=== PATIENT | female | born 1960 | race Caucasian/White ===

== ENCOUNTER 2018-08-28 14:58 | Emergency (ER) | payer OTHER ==
[2018-08-28] MEDS ORDERED: NA CHLORIDE 0.9% 1,000 ML ONE (17:15)
[2018-08-28 17:22] LABS: Absolute Lymphocytes (CBC) 1.8 K/uL (0.7-4.9); Absolute Monocytes 0.6 K/uL (0.1-1.3); Absolute Neutrophil 3.5 K/uL (1.8-8.0); Basophils % 0.2 % (0-1.3); Hematocrit 32.6 % (36.0-45.0); Lymphocytes % 29.2 % (15.3-44.8); MPV 7.4 fL (7.6-11.3); Monocytes % 10.1 % (3.3-12.3); Protime INR 1.04; RBC Red Blood Cell Count 3.81 M/uL (3.86-4.86)
[2018-08-28 17:41] LABS: ALT/SGPT 39 U/L (12-78); AST/SGOT 28 U/L (15-37); Albumin 3.5 g/dL (3.4-5.0); Alkaline Phosphatase 55 U/L (45-117); BUN Blood Urea Nitrogen 14 mg/dL (7-18); Bicarbonate 28 mmol/L (21-32); Bilirubin Direct 0.1 mg/dL (0-0.2); Bilirubin Total 0.4 mg/dL (0.2-1.0); Glucose Level 106 mg/dL (74-106); Magnesium 2.1 mg/dL (1.8-2.4); NT PRO-BNP 239 pg/mL (<125); Potassium 3.8 mmol/L (3.5-5.1); Protein, Total 6.7 g/dL (6.4-8.2); Sodium Level 141 mmol/L (136-145); Troponin (Emerg Dept Use Only) < 0.02 ng/mL (0.0-0.045)
--- NOTE | 2018-08-28 18:01 | RAD REPORT ---
EXAM DESCRIPTION: Shireen De La Vega (2 Views)08/28/2018 5:13 pm CLINICAL HISTORY: Cough COMPARISON: 2017 FINDINGS: The lungs appear clear of acute infiltrate. The heart is normal size IMPRESSION: No acute abnormalities displayed
--- NOTE | 2018-08-28 19:56 | EDPHYS ---
Physician Documentation [facility] Name: Debbie Emanuel Age: 57 yrs Sex: Female : 1960 Arrival Date: 08/28/2018 Time: 15:01 Bed 27 Private MD: Anat Sam K ED Physician Demetrio Gates HPI: 08/28 16:29 This 57 yrs old Female presents to ER via Ambulatory with complaints of Blood pm1 Pressure Problem. 16:29 . Lower than normal blood pressure today. Systolic blood pressure in the AM was in the pm1 90s. Since the patient has been ill with URI she has not been drinking as much water as she normally takes. Typically 10 bottles per day. Since illness she has been drinking about 2-3. Had cough and congestion onset 3 weeks ago. Saw PCP and was given medrol dose paola. Tolerated only 3 days of it and stopped. Was later called in a prescription of amoxicillin by PCP and she completed them about 1 week ago. 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 16:29 cough is improved and no longer productive. pm1 Historical: - Allergies: 15:11 Codeine; tw2 15:11 Vicodin; tw2 - Home Meds: 15:11 levothyroxine 75 mcg tab 1 tab once daily [Active]; metoprolol tartrate 25 mg Oral tab tw2 1 tab once daily [Active]; lisinopril 20 mg Oral tab 1 tab once daily [Active]; Paxil 40 mg Oral tab 1 tab once daily [Active]; hydrochlorothiazide 12.5 mg Oral tab 1 tab once daily [Active]; fenofibrate 120 mg oral tab 1 tab once daily [Active]; Lipitor 10 mg Oral tab 1 tab once daily [Active]; Ecotrin 325 mg Oral TbEC 1 tab once daily [Active]; - PMHx: 15:11 vitamin b-12 deficiency; Thyroid problem; Hypertension; Hyperlipidemia; Anxiety; tw2 - PSHx: 15:11 Tubal ligation; Appendectomy; Hysterectomy; tw2 - Immunization history:: Adult Immunizations. - Social history:: Smoking status: . - Ebola Screening: : Patient denies travel to an Ebola-affected area in the 21 days before illness onset. ROS: 16:29 Constitutional: Negative for fever, chills, and weight loss, Eyes: Negative for injury, pm1 pain, redness, and discharge, ENT: Negative for injury, pain, and discharge, Neck: Negative for injury, pain, and swelling, Cardiovascular: Negative for chest pain, palpitations, and edema. 16:29 Abdomen/GI: Negative for abdominal pain, nausea, vomiting, diarrhea, and constipation, Back: Negative for injury and pain, : Negative for injury, bleeding, discharge, and swelling, MS/Extremity: Negative for injury and deformity, Skin: Negative for injury, rash, and discoloration, Neuro: Negative for headache, weakness, numbness, tingling, and seizure. 16:29 Respiratory: Positive for cough, Negative for shortness of breath, sputum production, wheezing. Exam: 16:29 Constitutional: This is a well developed, well nourished patient who is awake, alert, pm1 and in no acute distress. Head/Face: Normocephalic, atraumatic. Eyes: Pupils equal round and reactive to light, extra-ocular motions intact. Lids and lashes normal. Conjunctiva and sclera are non-icteric and not injected. Cornea within normal limits. Periorbital areas with no swelling, redness, or edema. ENT: Nares patent. No nasal discharge, no septal abnormalities noted. Tympanic membranes are normal and external auditory canals are clear. Oropharynx with no redness, swelling, or masses, exudates, or evidence of obstruction, uvula midline. Mucous membranes moist. Neck: Trachea midline, no thyromegaly or masses palpated, and no cervical lymphadenopathy. Supple, full range of motion without nuchal rigidity, or vertebral point tenderness. No Meningismus. Chest/axilla: Normal chest wall appearance and motion. Nontender with no deformity. No lesions are appreciated. Respiratory: Lungs have equal breath sounds bilaterally, clear to auscultation and percussion. No rales, rhonchi or wheezes noted. No increased work of breathing, no retractions or nasal flaring. Abdomen/GI: Soft, non-tender, with normal bowel sounds. No distension or tympany. No guarding or rebound. No evidence of tenderness throughout. 16:29 Back: No spinal tenderness. No costovertebral tenderness. Full range of motion. Skin: Warm, dry with normal turgor. Normal color with no rashes, no lesions, and no evidence of cellulitis. MS/ Extremity: Pulses equal, no cyanosis. Neurovascular intact. Full, normal range of motion. 16:29 Cardiovascular: Rate: bradycardic, Rhythm: regular, Heart sounds: normal, Edema: is not appreciated. 16:29 Neuro: Orientation: is normal, Motor: is normal, moves all fours. Vital Signs: 15:08 BP 107 / 62; Pulse 62; Resp 17; Temp 97.1(TE); Pulse Ox 97% on R/A; Weight 65.77 kg tw2 (R); Height 5 ft. 6 in. (167.64 cm); Pain 9/10; 17:13 BP 117 / 59; Pulse 51; Resp 18; Pulse Ox 99% ; tf1 18:00 BP 132 / 69; Pulse 51; Resp 18; Temp 98.6; Pulse Ox 99% ; tf1 18:30 BP 150 / 75; Pulse 50; Resp 15; Pulse Ox 98% ; rv 19:00 BP 145 / 71; Pulse 52; Resp 15; Pulse Ox 99% ; rv 20:00 BP 145 / 66; Pulse 55; Resp 16; Temp 98.5; Pulse Ox 99% ; rv 15:08 Body Mass Index 23.40 (65.77 kg, 167.64 cm) tw2 MDM: 16:26 Patient medically screened. pm1 19:54 Data reviewed: vital signs. Data interpreted: Pulse oximetry: on room air is 99 %. pm1 Interpretation: normal. Counseling: I had a detailed discussion with the patient and/or guardian regarding: the historical points, exam findings, and any diagnostic results supporting the discharge/admit diagnosis, lab results, radiology results, the need for outpatient follow up, to return to the emergency department if symptoms worsen or persist or if there are any questions or concerns that arise at home. 08/28 16:42 Order name: Flu pm1 08/28 16:42 Order name: Basic Metabolic Panel pm1 08/28 16:42 Order name: CBC with Diff; Complete Time: 17:31 pm1 08/28 16:42 Order name: LFT's; Complete Time: 18:06 pm1 08/28 16:42 Order name: Magnesium; Complete Time: 18:06 pm1 08/28 16:42 Order name: NT PRO-BNP; Complete Time: 18:06 pm08/28 16:42 Order name: Chest Pa And Lat (2 Views) XRAY; Complete Time: 18:06 pm1 08/28 16:42 Order name: PT-INR; Complete Time: 17:31 pm1 08/28 16:42 Order name: Troponin (emerg Dept Use Only); Complete Time: 18:06 pm1 08/28 16:42 Order name: EKG; Complete Time: 16:44 pm1 08/28 16:43 Order name: Influenza Screen (A ; Complete Time: 18:06 EDMS 08/28 16:43 Order name: Basic Metabolic Panel; Complete Time: 18:06 EDMS 08/28 19:55 Order name: [place] Screen Profile ss 08/28 16:42 Order name: Cardiac monitoring; Complete Time: 17:07 pm1 08/28 16:42 Order name: EKG - Nurse/Tech; Complete Time: 17:07 pm1 08/28 16:42 Order name: IV Saline Lock; Complete Time: 17:07 pm1 08/28 16:42 Order name: Labs collected and sent; Complete Time: 17:07 pm1 08/28 16:42 Order name: O2 Per Protocol; Complete Time: 17:07 pm1 08/28 16:42 Order name: O2 Sat Monitoring; Complete Time: 17:07 pm1 EC:06 Rate is 49 beats/min. Rhythm is regular, Sinus bradycardia with Right bundle branch pm1 block. QRS Urich is Normal. Clinical impression: Abnormal EKG without significant change. Administered Medications: 17:20 Drug: NS 0.9% 1000 ml Route: IV; Rate: 1000 ml; Site: right antecubital; rv 19:19 Follow up: IV Status: Completed infusion; IV Intake: 1000ml rv Disposition: 08/29 09:06 Co-signature as Attending Physician, Demetrio Gates MD I agree with the assessment and kdr plan of care. Disposition: 08/28/18 19:55 Discharged to Home. Impression: Dehydration, Hypotension, Acute upper respiratory infection, unspecified. - Condition is Stable. - Discharge Instructions: Dehydration, Adult, Viral Respiratory Infection, Rehydration, Adult. - Medication Reconciliation Form, Thank You Letter, Antibiotic Education, Prescription Opioid Use form. - Follow up: Emergency Department; When: As needed; Reason: Worsening of condition. Follow up: Private Physician; When: 2 - 3 days; Reason: Recheck today's complaints, Continuance of care, Re-evaluation by your physician. - Problem is new. - Symptoms have improved. Signatures: Dispatcher [employer] EDMS Demetrio Gates MD MD kdr Marinas, Patrick, NP CONTACT CENTER ASSISTANT pm1 Crystal Gross, RN RN tw2 Yazan Toledo RN RN rv Corrections: (The following items were deleted from the chart) 08/28 20:24 19:55 08/28/2018 19:55 Discharged to Home. Impression: Dehydration; Hypotension; Acute rv upper respiratory infection, unspecified. Condition is Stable. Forms are Medication Reconciliation Form, Thank You Letter, Antibiotic Education, Prescription Opioid Use. Follow up: Emergency Department; When: As needed; Reason: Worsening of condition. Follow up: Private Physician; When: 2 - 3 days; Reason: Recheck today's complaints, Continuance of care, Re-evaluation by your physician. Problem is new. Symptoms have improved. pm1
--- NOTE | 2018-08-28 19:56 | ER ---
Nurse's Notes [facility] Name: Debbie Emanuel Age: 57 yrs Sex: Female : 1960 Arrival Date: 08/28/2018 Time: 15:01 Bed 27 Private MD: Anat Sam K Diagnosis: Dehydration;Hypotension;Acute upper respiratory infection, unspecified Presentation: 08/28 15:06 Presenting complaint: Patient states: i have been sick for 2 weeks, the just called tw2 me in some antibiotics, i hurt all over, i still have a cough but it has gotten better, i am weak i dont have any energy. Transition of care: patient was not received from another setting of care. Onset of symptoms was August 28, 2018. Risk Assessment: Do you want to hurt yourself or someone else? Patient reports no desire to harm self or others. Initial Sepsis Screen: Does the patient meet any 2 criteria? No. Patient's initial sepsis screen is negative. Does the patient have a suspected source of infection? No. Patient's initial sepsis screen is negative. Note i completed it about 3 or 4 days ago,amoxicillin course that Dr. Sam called in. Care prior to arrival: None. 15:06 Method Of Arrival: Ambulatory tw2 15:06 Acuity: NU 3 tw2 Triage Assessment: 15:08 General: Appears in no apparent distress. slender, well groomed, Behavior is calm, tw2 cooperative, appropriate for age. Pain: Complains of pain in "all over". Neuro: Reports weakness since 2 weeks now. Respiratory: Reports cough that is. Historical: - Allergies: 15:11 Codeine; tw2 15:11 Vicodin; tw2 - Home Meds: 15:11 levothyroxine 75 mcg tab 1 tab once daily [Active]; metoprolol tartrate 25 mg Oral tab tw2 1 tab once daily [Active]; lisinopril 20 mg Oral tab 1 tab once daily [Active]; Paxil 40 mg Oral tab 1 tab once daily [Active]; hydrochlorothiazide 12.5 mg Oral tab 1 tab once daily [Active]; fenofibrate 120 mg oral tab 1 tab once daily [Active]; Lipitor 10 mg Oral tab 1 tab once daily [Active]; Ecotrin 325 mg Oral TbEC 1 tab once daily [Active]; - PMHx: 15:11 vitamin b-12 deficiency; Thyroid problem; Hypertension; Hyperlipidemia; Anxiety; tw2 - PSHx: 15:11 Tubal ligation; Appendectomy; Hysterectomy; tw2 - Immunization history:: Adult Immunizations. - Social history:: Smoking status: . - Ebola Screening: : Patient denies travel to an Ebola-affected area in the 21 days before illness onset. Screenin:34 Abuse screen: Denies threats or abuse. Denies injuries from another. Nutritional rv screening: No deficits noted. Tuberculosis screening: No symptoms or risk factors identified. Fall Risk None identified. Assessment: 17:28 General: Appears in no apparent distress. uncomfortable, Behavior is calm, cooperative. rv Pain: Denies pain. Neuro: Level of Consciousness is awake, alert, obeys commands, Oriented to person, place, time, situation. Cardiovascular: Capillary refill < 3 seconds. Respiratory: Airway is patent. GI: No signs and/or symptoms were reported involving the gastrointestinal system. : No signs and/or symptoms were reported regarding the genitourinary system. EENT: No signs and/or symptoms were reported regarding the EENT system. Derm: Skin is intact. Musculoskeletal: No signs and/or symptoms reported regarding the musculoskeletal system. 19:18 Reassessment: Patient appears in no apparent distress at this time. Patient and/or rv family updated on plan of care and expected duration. Pain level reassessed. Patient is alert, oriented x 3, equal unlabored respirations, skin warm/dry/pink. Vital Signs: 15:08 BP 107 / 62; Pulse 62; Resp 17; Temp 97.1(TE); Pulse Ox 97% on R/A; Weight 65.77 kg tw2 (R); Height 5 ft. 6 in. (167.64 cm); Pain 9/10; 17:13 BP 117 / 59; Pulse 51; Resp 18; Pulse Ox 99% ; tf1 18:00 BP 132 / 69; Pulse 51; Resp 18; Temp 98.6; Pulse Ox 99% ; tf1 18:30 BP 150 / 75; Pulse 50; Resp 15; Pulse Ox 98% ; rv 19:00 BP 145 / 71; Pulse 52; Resp 15; Pulse Ox 99% ; rv 20:00 BP 145 / 66; Pulse 55; Resp 16; Temp 98.5; Pulse Ox 99% ; rv 15:08 Body Mass Index 23.40 (65.77 kg, 167.64 cm) tw2 ED Course: 15:01 Patient arrived in ED. mr 15:02 Anat Sam MD is Private Physician. mr 15:08 Triage completed. tw2 15:08 Arm band placed on. tw2 15:30 Patient has correct armband on for positive identification. Placed in gown. Bed in low rv position. Call light in reach. Side rails up X 1. 15:30 Pulse ox on. NIBP on. rv 16:26 Seth Martin NP is PHCP. pm1 16:26 Demetrio Gates MD is Attending Physician. pm1 17:00 Yazan Toledo RN is Primary Nurse. rv 17:01 Initial lab(s) drawn, by pr, sent to lab. Flu and/or RSV swab sent to lab. Inserted dh3 saline lock: 20 gauge in right antecubital area, using aseptic technique. Blood collected. 17:08 EKG done, by quality lab technician. reviewed by Seth Martin NP. 3 17:10 Chest Pa And Lat (2 Views) XRAY In Process Unspecified. EDMS 17:20 Flu Sent. rv 17:20 Basic Metabolic Panel Sent. rv 20:23 No provider procedures requiring assistance completed. IV discontinued, intact, rv bleeding controlled, No redness/swelling at site. Pressure dressing applied. Administered Medications: 17:20 Drug: NS 0.9% 1000 ml Route: IV; Rate: 1000 ml; Site: right antecubital; rv 19:19 Follow up: IV Status: Completed infusion; IV Intake: 1000ml rv Intake: 19:19 IV: 1000ml; Total: 1000ml. rv Outcome: 19:55 Discharge ordered by MD. pm1 20:23 Discharged to home ambulatory. rv 20:23 Condition: good 20:23 Discharge instructions given to patient, family, Instructed on discharge instructions, follow up and referral plans. Demonstrated understanding of instructions, follow-up care. 20:24 Patient left the ED. rv Signatures: Dispatcher [employer] EDMS Jeannie Veliz Seth Martin NP LIFTER/DRIVER pm1 Crystal Gross RN RN tw2 Laurel Coronel [facility] Veena Vergara [facility] Yazan Toledo RN RN rv Zay Mckeon RN RN tf1 Corrections: (The following items were deleted from the chart) 18:44 18:00 BP 132 / 69; Pulse 51bpm; Resp 18bpm; Pulse Ox 99%; tf1 tf1
--- NOTE | 2018-08-29 07:26 | EKG ---
Test Date: 2018-08-28 Test Time: 17:04:21 Proof Sorter: LINDSEY MEASUREMENT RESULTS: Intervals: Rate: 49 MO: 172 QRSD: 108 QT: 462 QTc: 417 Marcell: P: 58 MO: 172 QRS: -19 T: 17 INTERPRETIVE STATEMENTS: Marked sinus bradycardia Incomplete right bundle branch block Anterior infarct, age undetermined Abnormal ECG Compared to ECG 01/28/2017 17:54:02 Sinus rhythm no longer present Myocardial infarct finding still present Electronically Signed On 08-29-18 07:25:38 CDT by Trevor Herbert
== END 2018-08-28 20:24 | disposition home or self-care (01) ==
LOC: ER 14:58
DX: E86.0 Dehydration (principal); J06.9 Acute upper respiratory infection, unspecified; I10 Essential (primary) hypertension; E78.5 Hyperlipidemia, unspecified; F41.9 Anxiety disorder, unspecified; E07.9 Disorder of thyroid, unspecified; Z88.5 Allergy status to narcotic agent
CPT/HCPCS: 36415; 71046; 80048; 80076; 83735; 83880; 84484; 85025; 85610; 86308; 87804; 93005; 96360; 96361; 99284; J7030

== ENCOUNTER 2020-04-10 10:03 | Emergency (ER) | payer OTHER ==
--- OUTSIDE RECORDS SUMMARY | 2020-04-10 10:05 | XMS REPORT | Continuity of Care Document ---
:1960 Author Organization [facility] t Address [address] [place] [address] [address] [place] [address] Care Team Providers Name Role Phone Cristobal Henderson MD Attending Clinician Only, Test Attending Clinician Unavailable Doctor Unassigned, Name Attending Clinician Unavailable Cristobal Henderson MD Admitting Clinician Problems Condition Condition Condition Status Onset Resolution Last Treating Co mments Source Name Details Category Date Date Treatment Clinician Date Impingemen Impingemen Problem Active [facility] t syndrome t syndrome Danita kes - of right of right Memori a shoulder shoulder l [facility] ent Clinics Bone cyst Bone cyst Problem Active [facility] of humerus of humerus Danita kes - Memoria [facility] ent Clinics Pain, Pain, Diagnosis Active [facility] joint, [facility], shoulder, [place] right right l [facility] ent [facility] Adhesive Adhesive Diagnosis Active [facility] capsulitis capsulitis Danita kes - of right of right Memori a shoulder shoulder l [facility] ent Clinics Allergies, Adverse Reactions, Alerts Allergy Allergy Status Severity Reaction(s) Onset Inactive Treating Comm ents Source Name Type Date Date Clinician Steroids Adverse Active Info Not [facility] Vicodin Adverse Active Info Not [facility] Reaction Available [facility] ent [facility] Hydrocod Adverse Active Info Not [facility] one-Acet Reaction Available [facility] Medications Ordered Filled Start Stop Current Ordering Indication Dosage Frequency Signature Comments Components Source Medication Medication Date Date Medication? Clinician (SIG) Name Name Fenofibric Fenofibric Yes Bhanu not [facility] Acid Acid [facility] defined [facility] Trazodone Trazodone Yes Bhanu not [facility] HCl HCl [facility]ala [facility] Levothyroxi Levothyroxi Yes Bhanu not [facility] ne Sodium ne Sodium Zavala defined [facility] Paroxetine Paroxetine Yes Bhanu not [facility] HCl HCl [facility]ala defined [facility] Atorvastati Atorvastati Yes Bhanu not [facility] n Calcium n Calcium Zavala defined [facility] Metoprolol Metoprolol Yes Bhanu not [facility] Succinate Succinate Zavala defined [facility] Lisinopril Lisinopril Yes Bhanu not [facility] Zavala [facility] Hydrochloro Hydrochloro Yes Bhanu not [facility] thiazide thiazide Zavala defined Danita kes - [facility] Procedures This patient has no known procedures. Encounters Start End Encounter Admission Attending Care Care Encounter Source Date/Time Date/Time Type Type Clinicians Facility Department ID 2019-12-30 2019-12-30 [facility] [id number] 06:40:00 09:04:00 Encounter Sarita kumar [id number] [place] [id number] [facility] [id number] [place] 071 2019-12-29 2019-12-29 Laboratory Only, [facility] [id number] 08:59:05 09:14:05 Only Test Ivania [id number] [place] [id number] [place] [id number] 2019-12-29 2019-12-29 Orders Doctor NORIEGA [id number] 00:00:00 00:00:00 Only UnassignedPIETRO [id number] Gervais [facility] [id number] 2018-12-23 2018-12-23 [place] [id number] 09:30:00 09:30:00 t Bone [facility] Results This patient has no known results.
--- NOTE | 2020-04-10 10:17 | EDPHYS ---
Physician Documentation [facility] Name: Debbie Emanuel Age: 59 yrs Sex: Female : 1960 Arrival Date: 04/10/2020 Time: 10:04 Bed 19 Private MD: Constantin Betancourt HPI: 04/10 10:14 This 59 yrs old Female presents to ER via Unassigned with complaints of kb Poison Francine. 10:14 The patient's rash thought to be caused by Contact allergy. The rash is located on the kb body diffusely. The rash can be described as papular. Onset: The symptoms/episode began/occurred 1 week(s) ago. Associated signs and symptoms: Pertinent positives: itching. Severity of symptoms: At their worst the symptoms were moderate in the emergency department the symptoms are unchanged. Treatment given at home: Benadryl. The patient has experienced similar episodes in the past. The patient has not recently seen a physician. Pt reports she cleaned out a ditch last Saturday and developed a small rash on her left wrist afterwards. States the rash has spread over the week. States she has had this a few times and was given a shot here so that is what she needs. Historical: - Allergies: 10:27 Vicodin; ll1 10:27 Codeine; ll1 - PMHx: 10:27 Anxiety; Thyroid problem; Hypertension; Hyperlipidemia; vitamin b-12 deficiency; ll1 - PSHx: 10:27 Tubal ligation; Appendectomy; Hysterectomy; ll1 - Immunization history:: Flu vaccine is up to date. - Social history:: Smoking status: Patient denies any tobacco usage or history of. ROS: 10:14 Constitutional: Negative for fever, chills, and weight loss, Cardiovascular: Negative kb for chest pain, palpitations, and edema, Respiratory: Negative for shortness of breath, cough, wheezing, and pleuritic chest pain, Abdomen/GI: Negative for abdominal pain, nausea, vomiting, diarrhea, and constipation, MS/Extremity: Negative for injury and deformity, Neuro: Negative for headache, weakness, numbness, tingling, and seizure. 10:14 Skin: Positive for rash, diffusely. Exam: 10:13 Constitutional: This is a well developed, well nourished patient who is awake, alert, kb and in no acute distress. Chest/axilla: Normal chest wall appearance and motion. Nontender with no deformity. No lesions are appreciated. Cardiovascular: Regular rate and rhythm with a normal S1 and S2. No gallops, murmurs, or rubs. Normal PMI, no JVD. No pulse deficits. Respiratory: Lungs have equal breath sounds bilaterally, clear to auscultation and percussion. No rales, rhonchi or wheezes noted. No increased work of breathing, no retractions or nasal flaring. Abdomen/GI: Soft, non-tender, with normal bowel sounds. No distension or tympany. No guarding or rebound. No evidence of tenderness throughout. MS/ Extremity: Pulses equal, no cyanosis. Neurovascular intact. Full, normal range of motion. Neuro: Awake and alert, GCS 15, oriented to person, place, time, and situation. Cranial nerves II-XII grossly intact. Motor strength 5/5 in all extremities. Sensory grossly intact. Cerebellar exam normal. Normal gait. 10:13 Skin: rash a moderate rash is noted, consistent with contact dermatitis. Vital Signs: 10:25 BP 134 / 69; Pulse 73; Resp 16; Temp 97.3; Pulse Ox 98% on R/A; Weight 64.41 kg; Height ll1 5 ft. 6 in. (167.64 cm); Pain 0/10; 10:25 Body Mass Index 22.92 (64.41 kg, 167.64 cm) ll1 MDM: 10:06 Patient medically screened. kb 10:13 Data reviewed: vital signs, nurses notes. Data interpreted: Pulse oximetry: on room air kb is 100 %. Interpretation: normal. Counseling: I had a detailed discussion with the patient and/or guardian regarding: the historical points, exam findings, and any diagnostic results supporting the discharge/admit diagnosis, the need for outpatient follow up, a family practitioner, to return to the emergency department if symptoms worsen or persist or if there are any questions or concerns that arise at home. Administered Medications: 10:25 Drug: Decadron 10 mg Route: IM; Site: right gluteus; ll1 10:50 Follow up: Response: No adverse reaction; RASS: Alert and Calm (0) ll1 Disposition: 04/11 08:34 Co-signature as Attending Physician, Constantin Guerrero MD I agree with the assessment and pravin plan of care. Disposition: 04/10/20 10:16 Discharged to Home. Impression: Allergic contact dermatitis due to plants, except food. - Condition is Stable. - Discharge Instructions: Poison Francine Dermatitis, [id number], Contact Dermatitis, [id number]. - Prescriptions for Pepcid 20 mg Oral Tablet - take 1 tablet by ORAL route every 12 hours for 5 days; 10 tablet. Prednisone 20 mg Oral Tablet - take 1 tablet by ORAL route once daily for 5 days; 5 tablet. - Medication Reconciliation Form, Thank You Letter, Antibiotic Education, Prescription Opioid Use form. - Follow up: Emergency Department; When: As needed; Reason: Worsening of condition. Follow up: Private Physician; When: 2 - 3 days; Reason: Recheck today's complaints, Continuance of care, Re-evaluation by your physician. Signatures: Jennifer Vargas, CUSTOMER STRATEGY MANAGER-C CUSTOMER STRATEGY MANAGER-Ckb Constantin Guerrero MD MD cha Lewis, Lynsay RN RN ll1 Corrections: (The following items were deleted from the chart) 04/10 10:50 10:16 04/10/2020 10:16 Discharged to Home. Impression: Allergic contact dermatitis due ll1 to plants, except food. Condition is Stable. Forms are Medication Reconciliation Form, Thank You Letter, Antibiotic Education, Prescription Opioid Use. Follow up: Emergency Department; When: As needed; Reason: Worsening of condition. Follow up: Private Physician; When: 2 - 3 days; Reason: Recheck today's complaints, Continuance of care, Re-evaluation by your physician. kb
--- NOTE | 2020-04-10 10:17 | ER ---
Nurse's Notes [facility] Name: Debbie Emanuel Age: 59 yrs Sex: Female : 1960 Arrival Date: 04/10/2020 Time: 10:04 Bed 19 Private MD: Diagnosis: Allergic contact dermatitis due to plants, except food Presentation: 04/10 10:25 Chief complaint: Patient states: Rash with itching to body for 1 week. Coronavirus ll1 screen: Client denies travel out of the [place] in the last 14 days. At this time, the client does not indicate any symptoms associated with coronavirus-19. Ebola Screen: Patient denies travel to an Ebola-affected area in the 21 days before illness onset. Initial Sepsis Screen: Does the patient meet any 2 criteria? No. Patient's initial sepsis screen is negative. Does the patient have a suspected source of infection? Yes: Skin breakdown/wound. Risk Assessment: Do you want to hurt yourself or someone else? Patient reports no desire to harm self or others. Onset of symptoms was April 03, 2020. 10:25 Method Of Arrival: Ambulatory ll1 10:25 Acuity: NU 4 ll1 Triage Assessment: 10:50 General: Appears uncomfortable, Behavior is calm, cooperative, appropriate for age. ll1 Historical: - Allergies: 10:27 Vicodin; ll1 10:27 Codeine; ll1 - PMHx: 10:27 Anxiety; Thyroid problem; Hypertension; Hyperlipidemia; vitamin b-12 deficiency; ll1 - PSHx: 10:27 Tubal ligation; Appendectomy; Hysterectomy; ll1 - Immunization history:: Flu vaccine is up to date. - Social history:: Smoking status: Patient denies any tobacco usage or history of. Screenin:50 Abuse screen: Denies threats or abuse. Nutritional screening: No deficits noted. ll1 Tuberculosis screening: No symptoms or risk factors identified. Fall Risk Total Umanzor Fall Scale indicates No Risk (0-24 pts). Assessment: 10:25 General: Appears uncomfortable, Behavior is calm, cooperative, appropriate for age. ll1 Pain: Denies pain. Neuro: No deficits noted. Cardiovascular: No deficits noted. Respiratory: No deficits noted. Derm: Rash noted that is itchy, red, raised, Reports rash with itching all over body for 1 week. Possible poison jesusita exposure. Vital Signs: 10:25 BP 134 / 69; Pulse 73; Resp 16; Temp 97.3; Pulse Ox 98% on R/A; Weight 64.41 kg; Height ll1 5 ft. 6 in. (167.64 cm); Pain 0/10; 10:25 Body Mass Index 22.92 (64.41 kg, 167.64 cm) ll1 ED Course: 10:04 Patient arrived in ED. rg4 10:05 Jennifer Vargas FNP-C is [facility]. kb 10:05 Constantin Guerrero MD is Attending Physician. kb 10:11 Ervin Rachel, LEXI is Primary Nurse. ll1 10:11 Arm band placed on Patient placed in an exam room, on a stretcher. ll1 10:27 Triage completed. ll1 10:50 Patient has correct armband on for positive identification. Bed in low position. Call ll1 light in reach. Side rails up X 1. Cardiac monitoring not applicable on this patient. 10:50 No provider procedures requiring assistance completed. Patient did not have IV access ll1 during this emergency room visit. Administered Medications: 10:25 Drug: Decadron 10 mg Route: IM; Site: right gluteus; ll1 10:50 Follow up: Response: No adverse reaction; RASS: Alert and Calm (0) ll1 Outcome: 10:16 Discharge ordered by . kb 10:50 Patient left the ED. ll1 10:50 Discharged to home ambulatory. ll1 10:50 Condition: stable 10:50 Discharge instructions given to patient, Instructed on discharge instructions, follow up and referral plans. no drinking with medication, no driving heavy equipment, medication usage, Demonstrated understanding of instructions, follow-up care, medications, Prescriptions given X 4. Signatures: Jennifer Vargas FNP-C FNP-Ckb Garcia, Rubi rg4 Ervin Rachel, RN RN ll1
[2020-04-10] MEDS ORDERED: dexAMETHasone 10 MG/ML VIAL ONE (10:32)
[2020-04-10 10:55] VITALS: BP 134/69; TEMP 97.3; O2SAT 98
== END 2020-04-10 10:50 | disposition home or self-care (01) ==
LOC: ER 10:03
DX: L23.7 Allergic contact dermatitis due to plants, except food (principal); I10 Essential (primary) hypertension; Z88.5 Allergy status to narcotic agent
CPT/HCPCS: 96372; 99283; J1100

== ENCOUNTER 2021-02-04 15:22 | Observation (INO) | payer OTHER ==
[2021-02-04 15:59] LABS: Absolute Lymphocytes (CBC) 2.3 K/uL (0.7-4.9); Basophils % 0.4 % (0-1.3); Hematocrit 36.5 % (36.0-45.0); Lymphocytes % 32.1 % (15.3-44.8); MPV 7.3 fL (7.6-11.3)
[2021-02-04 16:08] LABS: Protime INR 1.03
[2021-02-04 16:14] LABS: ALT/SGPT 41 U/L (12-78); AST/SGOT 30 U/L (15-37); Albumin 4.1 g/dL (3.4-5.0); Alkaline Phosphatase 78 U/L (45-117); BUN Blood Urea Nitrogen 21 mg/dL (7-18); Bicarbonate 27 mmol/L (21-32); Bilirubin Direct 0.1 mg/dL (0-0.2); Bilirubin Total 0.3 mg/dL (0.2-1.0); Glucose Level 118 mg/dL (74-106); Magnesium 2.1 mg/dL (1.8-2.4); NT PRO-BNP 48 pg/mL (<125); Potassium 3.4 mmol/L (3.5-5.1); Sodium Level 140 mmol/L (136-145); Troponin (Emerg Dept Use Only) < 0.02 ng/mL (0.0-0.045)
--- NOTE | 2021-02-04 16:17 | RAD REPORT ---
EXAM DESCRIPTION: Shireen Single View02/04/2021 4:11 pm CLINICAL HISTORY: Chest pain COMPARISON: 2018 FINDINGS: The lungs appear clear of acute infiltrate. The heart is normal size IMPRESSION: No acute abnormalities displayed
--- NOTE | 2021-02-04 16:26 | ER ---
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 Pt states "my doctor took me off metoprolol about 3 weeks ago because my heart rate was low but I was on that medication for years". Pt also reports dizziness, denies nausea/vomiting. 15:26 Coronavirus screen: shortness of breath. Ebola Screen: No symptoms or risks identified aa5 at this time. Initial Sepsis Screen: Does the patient meet any 2 criteria? No. Patient's initial sepsis screen is negative. Does the patient have a suspected source of infection? No. Patient's initial sepsis screen is negative. Risk Assessment: Do you want to hurt yourself or someone else? Patient reports no desire to harm self or others. Onset of symptoms was February 04, 2021. 15:26 Acuity: NU 3 aa5 15:26 Method Of Arrival: Wheelchair aa5 Triage Assessment: 15:30 General: Appears distressed, uncomfortable, obese, Behavior is cooperative, appropriate bp for age, anxious. Pain: Complains of pain in chest. EENT: No deficits noted. Neuro: Reports dizziness. Cardiovascular: Reports chest pain. Respiratory: Reports shortness of breath. GI: No signs and/or symptoms were reported involving the gastrointestinal system. : No signs and/or symptoms were reported regarding the genitourinary system. Derm: No deficits noted. Musculoskeletal: No deficits noted. Historical: - Allergies: 15:31 Codeine; aa5 15:31 Vicodin; aa5 - Home Meds: 19:41 Ecotrin 325 mg Oral TbEC 1 tab once daily [Active]; fenofibrate 120 mg Oral tab 1 tab lp1 once daily [Active]; hydrochlorothiazide 12.5 mg Oral tab 1 tab once daily [Active]; levothyroxine 75 mcg tab 1 tab once daily [Active]; Lipitor 10 mg Oral tab 1 tab once daily [Active]; lisinopril 20 mg Oral tab 1 tab once daily [Active]; metoprolol tartrate 25 mg Oral tab 1 tab once daily [Active]; Paxil 40 mg Oral tab 1 tab once daily [Active]; - PMHx: 15:31 Anxiety; Hyperlipidemia; Hypertension; Thyroid problem; vitamin b-12 deficiency; aa5 - Immunization history:: Client reports receiving the Rogelio \\T\\ Rogelio single-dose vaccine. - Social history:: Smoking status: Patient denies any tobacco usage or history of. Screenin:30 Abuse screen: Denies threats or abuse. Nutritional screening: No deficits noted. ap3 Tuberculosis screening: No symptoms or risk factors identified. Fall Risk None identified. Assessment: 15:30 General: Appears in no apparent distress. uncomfortable, Behavior is calm, cooperative, ap3 appropriate for age. Pain: Complains of pain in chest Pain does not radiate. Pain began suddenly, 1 hour ago. Neuro: Level of Consciousness is awake, alert, obeys commands, Oriented to person, place, time, situation, Appropriate for age Moves all extremities. Gait is steady, Speech is normal. Cardiovascular: Reports chest pain, Patient's skin is warm and dry. Respiratory: Airway is patent Respiratory effort is even, unlabored, Respiratory pattern is regular, symmetrical. 16:32 Reassessment: Patient and/or family updated on plan of care and expected duration. Pain ap3 level reassessed. Patient is alert, oriented x 3, equal unlabored respirations, skin warm/dry/pink. 17:15 Reassessment: Patient and/or family updated on plan of care and expected duration. Pain ap3 level reassessed. Patient is alert, oriented x 3, equal unlabored respirations, skin warm/dry/pink. 18:29 Reassessment: No changes from previously documented assessment. Patient and/or family ap3 updated on plan of care and expected duration. Pain level reassessed. Patient is alert, oriented x 3, equal unlabored respirations, skin warm/dry/pink. 19:30 Reassessment: Patient appears in no apparent distress at this time. Patient is alert, lp1 oriented x 3, equal unlabored respirations, skin warm/dry/pink. Patient aware of waiting for room assignment for admission Patient states feeling better. Vital Signs: 15:26 BP 160 / 82; Pulse 68; Resp 22 S; Temp 97.0(TE); Pulse Ox 100% on R/A; Weight 66.68 kg aa5 (R); Height 5 ft. 6 in. (167.64 cm) (R); 16:18 BP 142 / 68; Pulse 63; Resp 18; Pulse Ox 100% on R/A; ap3 17:38 BP 131 / 66; Pulse 64; Pulse Ox 99% on R/A; ap3 18:54 BP 141 / 81; Pulse 59; Pulse Ox 98% on R/A; ap3 19:30 BP 140 / 74; Pulse 63; Resp 12; Pulse Ox 99% on R/A; Pain 0/10; lp1 15:26 Body Mass Index 23.73 (66.68 kg, 167.64 cm) aa5 ED Course: 15:23 Patient arrived in ED. as 15:24 Anat Sam MD is Private Physician. as 15:26 Mario Krause, LEXI is Primary Nurse. bp 15:26 Arm band placed on Patient placed in an exam room, on a stretcher. aa5 15:30 Jennifer Vargas FNP-C is PHCP. kb 15:30 Merary Haney MD is Attending Physician. kb 15:30 Patient has correct armband on for positive identification. Placed in gown. Bed in low ap3 position. Call light in reach. Side rails up X2. Adult w/ patient. child monitor on. Pulse ox on. NIBP on. Door closed. Noise minimized. 15:30 Patient maintains SpO2 saturation greater than 95% on room air. ap3 15:34 Triage completed. aa5 15:44 Inserted saline lock: 20 gauge in right antecubital area, using aseptic technique. ap3 Blood collected. 16:11 XRAY Chest (1 view) In Process Unspecified. EDMS 16:25 Marcelo Chanel DO is Hospitalizing Provider. kb 16:35 Admitting physician to see patient. ap3 16:55 CT Head Brain wo Cont In Process Unspecified. EDMS 16:57 CT Head Angio In Process Unspecified. EDMS 19:39 No provider procedures requiring assistance completed. Patient admitted, IV remains in lp1 place. Administered Medications: 16:33 Drug: Aspirin Chewable Tablet 324 mg Route: PO; ap3 17:39 Follow up: Response: No adverse reaction ap3 16:33 Drug: XANax (alprazolam) Tablet 0.25 mg Route: PO; ap3 17:39 Follow up: Response: No adverse reaction; Anxiety decreased ap3 Outcome: 16:25 Decision to Hospitalize by Provider. kb 19:41 Condition: stable lp1 19:41 Instructed on the need for admit. 19:48 Admitted to Med/surg room 228, with chart, Report called to LEXI Muñiz lp1 19:56 Patient left the ED. lp1 Signatures: Dispatcher [employer] EDMS Jennifer Vargas, RN OR LPN-C RN OR LPN-Lula Lawson Audri, RN RN aa5 Rosalind Lowe RN RN lp1 Mario Krause, RN RN Lynette Healy RN RN ap3
--- NOTE | 2021-02-04 16:26 | EDPHYS ---
Physician Documentation [facility] Name: Debbie Emanuel Age: 60 yrs Sex: Female : 1960 Arrival Date: 02/04/2021 Time: 15:23 Bed 5 Private MD: Anat Sam K ED Physician Merary Haney HPI: 02/04 15:35 This 60 yrs old Female presents to ER via Wheelchair with complaints of Chest kb Pain, Nausea, Dizziness. 15:35 The patient or guardian reports chest pain that is located primarily in the anterior kb chest wall, left. Onset: 30 minute(s) ago. The pain does not radiate. Associated signs and symptoms: The patient has no apparent associated signs or symptoms. The chest pain is described as sharp. Duration: The patient or guardian reports a single episode, that is still ongoing. Modifying factors: The symptoms are alleviated by nothing. the symptoms are aggravated by nothing. Severity of pain: At its worst the pain was moderate in the emergency department the pain is unchanged. The patient has not experienced similar symptoms in the past. The patient has not recently seen a physician. 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 States the pain comes on strong and then lets up a little. Worse with deep inspiration. History of fast heart rate, had ablasion in the past and was on metoprolol. Dr Adams took her off of the metoprolol 3 weeks ago. Historical: - Allergies: 15:31 Codeine; aa5 15:31 Vicodin; aa5 - Home Meds: 19:41 Ecotrin 325 mg Oral TbEC 1 tab once daily [Active]; fenofibrate 120 mg Oral tab 1 tab lp1 once daily [Active]; hydrochlorothiazide 12.5 mg Oral tab 1 tab once daily [Active]; levothyroxine 75 mcg tab 1 tab once daily [Active]; Lipitor 10 mg Oral tab 1 tab once daily [Active]; lisinopril 20 mg Oral tab 1 tab once daily [Active]; metoprolol tartrate 25 mg Oral tab 1 tab once daily [Active]; Paxil 40 mg Oral tab 1 tab once daily [Active]; - PMHx: 15:31 Anxiety; Hyperlipidemia; Hypertension; Thyroid problem; vitamin b-12 deficiency; aa5 - Immunization history:: Client reports receiving the Rogelio \T\ Rogelio single-dose vaccine. - Social history:: Smoking status: Patient denies any tobacco usage or history of. ROS: 15:34 Constitutional: Negative for fever, chills, and weight loss. kb 15:34 Cardiovascular: Positive for chest pain, Negative for edema, orthopnea, palpitations, paroxysmal nocturnal dyspnea. 15:34 All other systems are negative. Exam: 15:33 Constitutional: This is a well developed, well nourished patient who is awake, alert, kb and in no acute distress. Head/Face: Normocephalic, atraumatic. ENT: Moist Mucous membranes Cardiovascular: Regular rate and rhythm with a normal S1 and S2. No gallops, murmurs, or rubs. No pulse deficits. Respiratory: Respirations even and unlabored. No increased work of breathing, no retractions or nasal flaring. Skin: Warm, dry with normal turgor. Normal color. MS/ Extremity: Pulses equal, no cyanosis. Neurovascular intact. Full, normal range of motion. Neuro: Awake and alert, GCS 15, oriented to person, place, time, and situation. Moves all extremities. Normal gait. Psych: Awake, alert, with orientation to person, place and time. Behavior, mood, and affect are within normal limits. 15:33 ECG was reviewed by the Attending Physician. Vital Signs: 15:26 BP 160 / 82; Pulse 68; Resp 22 S; Temp 97.0(TE); Pulse Ox 100% on R/A; Weight 66.68 kg aa5 (R); Height 5 ft. 6 in. (167.64 cm) (R); 16:18 BP 142 / 68; Pulse 63; Resp 18; Pulse Ox 100% on R/A; ap3 17:38 BP 131 / 66; Pulse 64; Pulse Ox 99% on R/A; ap3 18:54 BP 141 / 81; Pulse 59; Pulse Ox 98% on R/A; ap3 19:30 BP 140 / 74; Pulse 63; Resp 12; Pulse Ox 99% on R/A; Pain 0/10; lp1 15:26 Body Mass Index 23.73 (66.68 kg, 167.64 cm) aa5 MDM: 15:30 Patient medically screened. kb 15:35 Data reviewed: vital signs, nurses notes. Data interpreted: Pulse oximetry: on room air kb is 100 %. Interpretation: normal. 16:25 The patient was given aspirin in the Emergency Department. Counseling: I had a detailed kb discussion with the patient and/or guardian regarding: the historical points, exam findings, and any diagnostic results supporting the discharge/admit diagnosis, lab results, radiology results, the need for further work-up and treatment in the hospital. 02/04 15:30 Order name: Basic Metabolic Panel kb 02/04 15:30 Order name: CBC with Diff; Complete Time: 16:14 kb 02/04 15:30 Order name: LFT's; Complete Time: 16:15 kb 02/04 15:30 Order name: Magnesium; Complete Time: 16:15 kb 02/04 15:30 Order name: NT PRO-BNP; Complete Time: 16:15 kb 02/04 15:30 Order name: PT-INR; Complete Time: 16:14 kb 02/04 15:30 Order name: Troponin (emerg Dept Use Only); Complete Time: 16:15 kb 02/04 15:30 Order name: XRAY Chest (1 view); Complete Time: 16:20 kb 02/04 15:30 Order name: Basic Metabolic Panel; Complete Time: 16:15 EDMS 02/04 16:26 Order name: CT Head Brain wo Cont; Complete Time: 17:34 kb 02/04 16:42 Order name: CT Head Angio; Complete Time: 17:37 kb 02/04 16:44 Order name: SARS-COV-2 RT PCR; Complete Time: 17:51 EDMS 02/04 15:30 Order name: EKG; Complete Time: 15:31 kb 02/04 15:30 Order name: Cardiac monitoring; Complete Time: 15:43 kb 02/04 15:30 Order name: EKG - Nurse/Tech; Complete Time: 15:43 kb 02/04 15:30 Order name: IV Saline Lock; Complete Time: 15:43 kb 02/04 15:30 Order name: Labs collected and sent; Complete Time: 15:43 kb 02/04 15:30 Order name: O2 Per Protocol; Complete Time: 15:43 kb 02/04 15:30 Order name: O2 Sat Monitoring; Complete Time: 15:43 kb EC:33 Rate is 66 beats/min. Rhythm is regular. QRS [place] is Normal. LA interval is normal at kb 166 msec. QRS interval is normal at 100 msec. QT interval is normal at 412 msec. Administered Medications: 16:33 Drug: Aspirin Chewable Tablet 324 mg Route: PO; ap3 17:39 Follow up: Response: No adverse reaction ap3 16:33 Drug: XANax (alprazolam) Tablet 0.25 mg Route: PO; ap3 17:39 Follow up: Response: No adverse reaction; Anxiety decreased ap3 Disposition Summary: 02/04/21 16:25 Hospitalization Ordered Hospitalization Status: Observation kb Provider: Marcelo Chanel Location: Telemetry/MedSurg (observation) kb Condition: Stable kb Problem: new kb Symptoms: are unchanged kb Bed/Room Type: Standard Room Assignment: 228(02/04/21 19:39) Diagnosis - Chest pain, unspecified kb Forms: - Medication Reconciliation Form kb - SBAR form kb Addendum: 02/06/2021 23:02 Co-signature as Attending Physician, Merary Haney MD PA/FINISH MENDER's history reviewed, m a2 patient interviewed, and examined. I agree with assessment and care plan and confirm the diagnosis (es) above. Signatures: Dispatcher [employer] EDIL Jennifer Vargas, HIV CTS SPECIALIST-C HIV CTS SPECIALIST-Caro Salas RN RN aa5 Rosalind Lowe RN RN lp1 Génesis Whyte RN RN Merary Haney MD MD ma2 Lynette Apodaca RN RN ap3 Corrections: (The following items were deleted from the chart) 02/04 16:44 16:13 CORONAVIRUS+MR.LAB.BRZ ordered. EDIL EDMS 19:39 16:25 kb cg
--- NOTE | 2021-02-04 17:20 | P.HP ---
Certification for Inpatient Patient admitted to: Observation With expected LOS: <2 Midnights Patient will require the following post-hospital care: None Practitioner: I am a practitioner with admitting privileges, knowledge of patient current condition, hospital course, and medical plan of care. Services: Services provided to patient in accordance with Admission requirements found in Title 42 Section 412.3 of the Code of Federal Regulations Patient History Date of Service: 02/04/21 Primary Care Provider: Dr. Sam; Cardiology-Dr. Adams Reason for admission: Chest pain History of Present Illness: 60-year-old female with history of hypertension, hyperlipidemia, hypothyroidism, and anxiety. Patient presented with chest pain to the left chest wall. There was no radiation of symptoms. It lasted about 30 minutes. Around the same time she reported some left-sided facial headache-like sensation. She had some mild shortness of breath. No nausea or vomiting. She reported some dizziness. She has not had chest pain before. She is seen by cardiology. Patient had been taken off of her metoprolol over the past 3 weeks. This was related to low heart rate. Patient came to the ER for further evaluation. In the ER patient was evaluated. Initial cardiac enzymes unremarkable. CBC unremarkable. Chest x-ray unremarkable. Sodium 140, potassium 3.4. BUN of 21, creatinine 1.09 with a GFR 51. Glucose 118. Patient was admitted for observation. Allergies acetaminophen [From Vicodin] Allergy (Unverified 01/28/17 21:42) Unknown codeine [Codeine] Allergy (Verified 07/21/14 09:43) UNKNOWN hydrocodone [Hydrocodone] Allergy (Verified 07/21/14 09:43) UNKNOWN codeine Allergy (Uncoded 08/14/14 14:21) Unknown Hy Allergy (Uncoded 08/14/14 14:21) Unknown hyd Allergy (Uncoded 07/31/14 11:43) Unknown STEROIDS Adverse Reaction (Uncoded 07/21/14 09:43) PALPITATIONS - Past Medical/Surgical History Diabetic: No -: Hypertension -: Hyperlipidemia -: Anxiety -: Hypothyroidism -: Seasonal allergies -: Insomnia -: THC use -: Back surgery -: Cardiac ablation -: Hysterectomy Psychosocial/ Personal History: Patient is . Patient admits to THC use - Family History Family History: Reviewed- Non-Contributory - Social History Smoking Status: Never smoker Alcohol use: Yes CD- Drugs: Yes Caffeine use: Yes Place of Residence: Home Review of Systems General: As per HPI Eyes: As per HPI ENT: Unremarkable Respiratory: Shortness of Breath, As per HPI Cardiovascular: Chest Pain, Light Headedness, As per HPI Gastrointestinal: Unremarkable Genitourinary: Unremarkable Musculoskeletal: Unremarkable Integumentary: Unremarkable Neurological: Unremarkable Lymphatics: Unremarkable Physical Examination - Studies Laboratory Data (last 24 hrs) 02/04/21 15:44: PT 11.9, INR 1.03 02/04/21 15:44: WBC 7.00, Hgb 12.5, Hct 36.5, Plt Count 270 02/04/21 15:44: Sodium 140, Potassium 3.4 L, BUN 21 H, Creatinine 1.09, Glucose 118 H, Magnesium 2.1, Total Bilirubin 0.3, AST 30, ALT 41, Alkaline Phosphatase 78 Assessment and Plan - Plan COVID: Pending Chest x-ray: Unremarkable CT head: Pending CTA head: Pending Physical Exam: GENERAL: The patient is a well-developed, well-nourished, in no apparent distre ss. Alert and oriented x3. VITAL SIGNS: Reviewed HEENT: Head is normocephalic and atraumatic. Extraocular muscles are intact. Pupils are equal, round, and reactive to light and accommodation. Nares appeared normal. Mouth is well hydrated and without lesions. Mucous membranes are moist. NECK: Supple. No carotid bruits. No lymphadenopathy or thyromegaly. LUNGS: Clear to auscultation. No crackles or wheezes are heard. HEART: Regular rate and rhythm, no appreciable gallops, rubs, murmurs or extra heart sounds ABDOMEN: Soft, nontender, and nondistended. Positive bowel sounds. No hepatosplenomegaly was noted. EXTREMITIES: Without any cyanosis, clubbing, rash, lesions or peripheral edema. NEUROLOGIC: The patient is oriented to person, place and time. Strength and sensation are grossly intact. Face is symmetric. SKIN: Normal color, turgor and temperature. No ulcerations or rashes noted. Impression: Chest pain Hypertension Hyperlipidemia Hypothyroidism Anxiety Insomnia THC use Plan: Chest pain: Patient will be admitted for further evaluation and treatment. We will continue to monitor telemetry and cardiac enzymes. Continue with home medications for hypertension, hyperlipidemia. Will obtain urine drug screen. Cardiology consulted to further evaluate. Await recommendations. Will obtain CT head and CTA of the head to evaluate her headache-like sensation. Anticipate possible discharge within 24 hours if work-up unremarkable. Hypertension: Continue with lisinopril 20 mg 1 pill twice daily and hydrochlorothiazide 12.5 mg daily. 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 Hyperlipidemia: Continue Lipitor. Will check fasting lipid panel. Hypothyroidism: Continue levothyroxine 88 mcg daily. Will check TSH and free T4. Anxiety: We will provide alprazolam as needed. Insomnia: Continue trazodone at night THC use: We will obtain urine drug screen. Code Status: Full Code DVT prophylaxis: Lovenox Advanced Care Planning-30 minutes: Home at discharge Discharge Plan: Home Plan to discharge in: 24 Hours - Advance Directives Does patient have a Living Will: No Does patient have a Durable POA for Healthcare: No - Code Status/Comfort Care Code Status Assessed: Yes (Full code) Time Spent Managing Pts Care (In Minutes): 55
--- NOTE | 2021-02-04 17:27 | RAD REPORT ---
EXAM DESCRIPTION: CT - Head Brain Wo Cont - 02/04/2021 4:55 pm CLINICAL HISTORY: Dizziness COMPARISON: None. TECHNIQUE: Computed axial tomography of the head was obtained. IV contrast was not requested. All CT scans are performed using dose optimization technique as appropriate and may include automated exposure control or mA/KV adjustment according to patient size. FINDINGS: An intracranial bleed is not seen . The ventricles are normal in caliber. No extra-axial fluid collection is noted. Fluid within the sinuses/ mastoids is not seen. IMPRESSION: No acute intracranial abnormality is seen. If patient's symptoms persist MRI of the bra in would be recommended.
[2021-02-04] MEDS ORDERED: ALPRAZOLAM 0.25 MG TABLET ONE (17:29)
[2021-02-04] MEDS ORDERED: ASPIRIN 81 MG CHEWABLE TABLET ONE (17:30)
--- NOTE | 2021-02-04 17:34 | RAD REPORT ---
EXAM DESCRIPTION: CTHead angio02/04/2021 4:57 pm CLINICAL HISTORY: Dizziness and headache COMPARISON: None TECHNIQUE: CT angiogram of the head was obtained. 3D MIPS reconstruction performed. All CT scans are performed using dose optimization technique as appropriate and may include automated exposure control or mA/KV adjustment according to patient size. FINDINGS: The basilar, internal carotid, anterior cerebral, middle cerebral and posterior cerebral a rteries are normal caliber. An aneurysm is not seen. origin right posterior cerebral artery A significant stenosis is not noted. IMPRESSION: No acute abnormality is displayed
[2021-02-04] MEDS ORDERED: ONDANSETRON 4 MG/2 ML VIAL IV PRN (19:36)
[2021-02-04] MEDS ORDERED: TRAZODONE 50 MG TABLET PO PRN (19:36)
[2021-02-04] MEDS ORDERED: ALPRAZOLAM 0.25 MG TABLET PO PRN (19:36)
[2021-02-04] MEDS ORDERED: ATORVASTATIN 10 MG TAB PO SCH (21:00)
[2021-02-04] MEDS: lisinopriL 20 MG TAB PO SCH (21:17)
[2021-02-04] MEDS: NA CHLORIDE 0.9% 1,000 ML IV SCH (21:18)
[2021-02-04 21:57] VITALS: BMI 23.4
[2021-02-04 22:19] LABS: CKMB Creatine Kinase MB 1.3 ng/mL (1.0-3.6); Creatine Phosphokinase 164 U/L (26-192); Troponin I < 0.02 ng/mL (0.0-0.045)
[2021-02-04 23:02] LABS: Barbiturates NEGATIVE (NEGATIVE); Benzodiazepines NEGATIVE (NEGATIVE); Cocaine NEGATIVE (NEGATIVE); METHAMPHETAM NEGATIVE (NEGATIVE); Methadone NEGATIVE (NEGATIVE); Opiates NEGATIVE (NEGATIVE); Phencyclidine NEGATIVE (NEGATIVE); THC Cannibis POSITIVE (NEGATIVE)
[2021-02-05 03:28] LABS: Absolute Lymphocytes (CBC) 2.1 K/uL (0.7-4.9); Basophils % 0.6 % (0-1.3); Hematocrit 33.6 % (36.0-45.0); MPV 7.4 fL (7.6-11.3); RBC Red Blood Cell Count 3.95 M/uL (3.86-4.86)
[2021-02-05 03:51] LABS: Magnesium 2.3 mg/dL (1.8-2.4); Potassium 3.5 mmol/L (3.5-5.1); Thyroid Stimulating Hormone 0.221 uIU/mL (0.360-3.740)
--- NOTE | 2021-02-05 05:57 | P.DS ---
Admission Date: 02/04/21 Discharge Date: 02/05/21 Primary Care Provider: Dr. Sam; Cardiology-Dr. Adams Disposition: ROUTINE DISCHARGE Discharge Condition: GOOD Reason for Admission: Chest pain Consultations: none Procedures: COVID: negative Chest x-ray: COMPARISON: 2018 FINDINGS: The lungs appear clear of acute infiltrate. The heart is normal size IMPRESSION: No acute abnormalities displayed CT head: COMPARISON: None. TECHNIQUE: Computed axial tomography of the head was obtained. IV contrast was not requested. All CT scans are performed using dose optimization technique as appropriate and may include automated exposure control or mA/KV adjustment according to patient size. FINDINGS: An intracranial bleed is not seen . The ventricles are normal in caliber. No extra-axial fluid collection is noted. Fluid within the sinuses/ mastoids is not seen. IMPRESSION: No acute intracranial abnormality is seen. CTA head: COMPARISON: None TECHNIQUE: CT angiogram of the head was obtained. 3D MIPS reconstruction performed. All CT scans are performed using dose optimization technique as appropriate and may include automated exposure control or mA/KV adjustment according to patient size. FINDINGS: The basilar, internal carotid, anterior cerebral, middle cerebral and posterior cerebral arteries are normal caliber. An aneurysm is not seen. origin right posterior cerebral artery A significant stenosis is not noted. IMPRESSION: No acute abnormality is displayed Medical Problem List: Chest pain Hypertension Mixed hyperlipidemia Hypothyroidism Depression with anxiety Insomnia THC use Brief History of Present Illness: 60-year-old female with history of hypertension, hyperlipidemia, hypothyroidism, and anxiety. Patient presented with chest pain to the left chest wall. There was no radiation of symptoms. It lasted about 30 minutes. Around the same time she reported some left-sided facial headache-like sensation. She had some mild shortness of breath. No nausea or vomiting. She reported some dizziness. She has not had chest pain before. She is seen by cardiology. Patient had been taken off of her metoprolol over the past 3 weeks. This was related to low heart rate. Patient came to the ER for further evaluation. In the ER patient was evaluated. Initial cardiac enzymes unremarkable. CBC unremarkable. Chest x-ray unremarkable. Sodium 140, potassium 3.4. BUN of 21, creatinine 1.09 with a GFR 51. Glucose 118. Patient was admitted for observation. Hospital Course: Patient presented with chest pain. Patient was admitted for further evaluation and observation. Patient with underlying history of hypertension, hyperlipidemia, hypothyroidism and anxiety. Cardiac enzymes unremarkable. No significant EKG changes noted. At discharge patient without significant chest pain. Patient is seen by cardiology as an outpatient. CT head with and without contrast unremarkable due to headache associated with chest pain. No cardiac intervention required at this time. At discharge patient will continue with her current medications including aspirin 81 mg daily, lisinopril 20 mg 1 pill twice daily, and hydrochlorothiazide 12.5 mg daily. Recommend follow-up with her brush or broom cutter this week to follow-up this hospitalization. Patient may require outpatient cardiac stress test and echocardiogram to further evaluate. Patient with hypertension. Blood pressures stable at this time. At discharge she'll continue with lisinopril 20 mg 1 pill twice daily and hydrochlorothiazide 12.5 mg daily. Her brush or broom cutter has weaned her off of metoprolol due to bradycardia. Recommend to maintain blood pressures less than 130/80. If blood pressure remains above 140/90, further adjustment may be required. This can be done with the help of her PCP or cardiology. Patient with mixed hyperlipidemia. LDL 61 and total triglycerides 272. At discharge she will continue with Lipitor 10 mg daily and fenofibrate 135 mg daily. Patient with hypothyroidism. TSH and free T4 reviewed. No need for changes at this time. Recommend to continue levothyroxine 88 mcg daily. Patient with depression with anxiety. Overall stable. At discharge patient will continue with Prozac 40 mg daily and alprazolam 0.25 mg as needed for anxiety. Patient with insomnia. At discharge she will continue with trazodone 100 mg at bedtime as directed. Patient with THC use. Urine drug screen was positive for THC. Cessation education provided. Vital Signs/Physical Exam: Temp Pulse Resp BP Pulse Ox 97.6 F 56 18 108/55 L 94 02/05/21 03:00 02/05/21 03:00 02/05/21 03:00 02/05/21 03:00 02/05/21 03:00 General: Alert, In no apparent distress, Oriented x3, Cooperative HEENT: Atraumatic Neck: Supple Respiratory: Clear to auscultation bilaterally, Normal air movement Cardiovascular: Normal pulses, Regular rate/rhythm Gastrointestinal: Normal bowel sounds, No tenderness, No masses, No rebound, No guarding Musculoskeletal: No erythema, No tenderness, No warmth Integumentary: No tenderness/swelling Neurological: Normal speech, Normal strength at 5/5 x4 extr, Normal tone, Normal affect Laboratory Data at Discharge: WBC 5.40 K/uL (4.3-10.9) D 02/05/21 03:19 Hgb 11.2 g/dL (12.0-15.0) L 02/05/21 03:19 Hct 33.6 % (36.0-45.0) L 02/05/21 03:19 Plt Count 242 K/uL (152-406) 02/05/21 03:19 PT 11.9 SECONDS (9.5-12.5) 02/04/21 15:44 INR 1.03 02/04/21 15:44 Sodium 143 mmol/L (136-145) 02/05/21 03:19 Potassium 3.5 mmol/L (3.5-5.1) 02/05/21 03:19 BUN 21 mg/dL (7-18) H 02/05/21 03:19 Creatinine 1.04 mg/dL (0.55-1.3) 02/05/21 03:19 Glucose 120 mg/dL (74-106) H 02/05/21 03:19 Magnesium 2.3 mg/dL (1.8-2.4) 02/05/21 03:19 Total Bilirubin 0.3 mg/dL (0.2-1.0) 02/04/21 15:44 AST 30 U/L (15-37) 02/04/21 15:44 ALT 41 U/L (12-78) 02/04/21 15:44 Alkaline Phosphatase 78 U/L (45-117) 02/04/21 15:44 Troponin I < 0.02 ng/mL (0.0-0.045) 02/04/21 21:14 Triglycerides 272 mg/dL (<150) H 02/05/21 03:19 Cholesterol 136 mg/dL (<200) 02/05/21 03:19 HDL Cholesterol 21 mg/dL (40-60) L 02/05/21 03:19 Cholesterol/HDL Ratio 6.48 02/05/21 03:19 Home Medications: ALPRAZolam [Xanax*] 1 tab PO PRN PRN 02/04/21 Aspirin [Aspirin EC 81 MG] 1 tab PO DAILY 02/04/21 Atorvastatin Calcium [Lipitor*] 1 tab PO BEDTIME 02/04/21 Fenofibric Acid (Choline) [Fenofibric Acid] 1 cap PO BEDTIME 02/04/21 Levothyroxine [Synthroid*] 1 tab PO DAILY 02/04/21 PARoxetine HCL [Paroxetine HCl] 1 tab PO DAILY 02/04/21 Trazodone [Desyrel*] 100 mg PO BEDTIME 02/04/21 hydroCHLOROthiazide [Hydrochlorothiazide] 1 tab PO DAILY 02/04/21 Lisinopril [Zestril] 1 tab PO BID #60 02/05/21 New Medications: Lisinopril [Zestril] 1 tab PO BID #60 Physician Discharge Instructions: Patient presented with chest pain. Patient was admitted for further evaluation and observation. Patient with underlying history of hypertension, hyperlipidemia, hypothyroidism and anxiety. Cardiac enzymes unremarkable. No significant EKG changes noted. At discharge patient without significant chest pain. Patient is seen by cardiology as an outpatient. CT head with and without contrast unremarkable due to headache associated with chest pain. No cardiac intervention required at this time. At discharge patient will continue with her current medications including aspirin 81 mg daily, lisinopril 20 mg 1 pill twice daily, and hydrochlorothiazide 12.5 mg daily. Recommend follow-up with her brush or broom cutter this week to follow-up this hospitalization. Patient may require outpatient cardiac stress test and echocardiogram to further evaluate. Patient with hypertension. Blood pressures stable at this time. At discharge she'll continue with lisinopril 20 mg 1 pill twice daily and hydrochlorothiazide 12.5 mg daily. Her brush or broom cutter has weaned her off of metoprolol due to bradycardia. Recommend to maintain blood pressures less than 130/80. If blood pressure remains above 140/90, further adjustment may be required. This can be done with the help of her PCP or cardiology. Patient with mixed hyperlipidemia. LDL 61 and total triglycerides 272. At discharge she will continue with Lipitor 10 mg daily and fenofibrate 135 mg daily. Patient with hypothyroidism. TSH and free T4 reviewed. No need for changes at this time. Recommend to continue levothyroxine 88 mcg daily. Patient with depression with anxiety. Overall stable. At discharge patient will continue with Prozac 40 mg daily and alprazolam 0.25 mg as needed for anxiety. Patient with insomnia. At discharge she will continue with trazodone 100 mg at bedtime as directed. Patient with THC use. Urine drug screen was positive for THC. Cessation education provided. Diet: AHA Activity: Ad carlos alberto Followup: Anat Sam MD [Primary Care Provider] - Time spent managing pt's care (in minutes): 55
[2021-02-05] MEDS ORDERED: LEVOTHYROXINE SOD 0.088 MG TAB PO SCH (06:30)
[2021-02-05 08:42] VITALS: BP 104/59; TEMP 99.1
[2021-02-05] MEDS: NA CHLORIDE 0.9% 1,000 ML IV SCH (08:56)
[2021-02-05] MEDS ORDERED: POTASSIUM CL SA 10 MEQ TAB PO ONE (09:00)
[2021-02-05] MEDS ORDERED: ASPIRIN EC 81 MG TAB PO SCH (09:00)
[2021-02-05] MEDS ORDERED: CETIRIZINE HCL 5 MG TABLET PO SCH (09:00)
[2021-02-05] MEDS ORDERED: hydroCHLOROthiazide 12.5 MG CAP PO SCH (09:00)
[2021-02-05] MEDS ORDERED: FLUTICASONE 50MCG NASAL SPRAY NAS SCH (09:00)
[2021-02-05] MEDS ORDERED: PARoxetine HCL 10 MG TAB PO SCH (09:00)
[2021-02-05] MEDS ORDERED: FENOFIBRATE 160 MG TAB PO SCH (09:00)
[2021-02-05] MEDS ORDERED: ENOXAPARIN 40 MG/0.4 ML SQ SCH (09:00)
[2021-02-05] MEDS: lisinopriL 20 MG TAB PO SCH (09:07)
[2021-02-05 09:25] VITALS: O2SAT 92
--- OUTSIDE RECORDS SUMMARY | 2021-02-17 23:32 | XMS REPORT | Continuity of Care Document ---
:1960 Author Organization [facility] t Address [address] [place] [address] [address] [place] [address] Care Team Providers Name Role Phone Marita Sam Primary Care Physician Cristobal GANDHI Attending Clinician Unavailable Only, Db Test Attending Clinician Unavailable Len FONSECAP Attending Clinician GREEN Attending Clinician Unavailable Doctor Unassigned, Name Attending Clinician Unavailable Cristobal Gandhi MD Attending Clinician Only, Test Attending Clinician Unavailable Cristobal GANDHI Admitting Clinician Unavailable Cristobal Gandhi MD Admitting Clinician Payers Payer Name Policy Type Policy Number Effective Date Expiration Date Jeovanny ROBERTSON II [id number] 2019 00:00:00 Problems Condition Condition Condition Status Onset Resolution Last Treating Co mments Source Name Details Category Date Date Treatment Clinician Date Impingemen Impingemen Problem Active [facility] syndrome t syndrome Danita kes - of right of right [facility] Bone cyst Bone cyst Problem Active [facility] humerus of humerus Danita k[facility] Pain, Pain, Diagnosis Active [facility] [place] [facility] Adhesive Adhesive Diagnosis Active [facility] capsulitis capsulitis Danita kes - of right of right [facility] a shoulder shoulder l [facility] Allergies, Adverse Reactions, Alerts Allergy Allergy Status Severity Reaction(s) Onset Inactive Treating Comm ents Source Name Type Date Date Clinician Steroids Adverse Active Info Not [facility] Reaction Available [facility]ics Vicodin Adverse Active Info Not [facility] Reaction Available [facility] Hydrocod Adverse Active Info Not [facility] t one-Acet Reaction Available Waqar es - aminophe [facility] n [facility] NO KNOWN Drug Active Univers ALLERGIE Class [facility] of [facility] [place] [facility] [place] Social History Social Habit Start Date Stop Date Quantity Comments Source Exposure to Not sure [facility] SARS-CoV-2 (event) Medica l Branch Tobacco use and 2019-12-31 2019-12-31 Never used [facility] exposure 00:00:00 00:00:00 [facility] Sex Assigned At [birth year] [facility] 00:00:00 00:00:00 Medical Branch Smoking Status Start Date Stop Date Source Never smoker [facility] Medications Ordered Filled Start Stop Current Ordering Indication Dosage Frequency Signature Comments Components Source Medication Medication Date Date Medication? Clinician (SIG) Name Name lisinopriL 2020-0 Yes 20mg Take 20 mg U nivers 20 mg 9-23 by mouth ity of tablet 14:04: daily. [place] 55 Indication Medical s: Branch hypertensi on ASA/calcium 2020-0 Yes 81mg Take 81 mg Univers carb/mag/al 9-23 by mouth ity of uminum 14:04: daily. [place] (ASPIRIN, 55 Medical BUFFERED Branch ORAL) traZODone 2020-0 Yes 100mg Take 100 Uni vers 100 mg 9-23 mg by ity of tablet 14:04: mouth at [place] 55 bedtime as Medical needed. Branch Indication s: insomnia LORAZEPAM 2020-0 Yes .25mg Take 0.25 Un юлия ORAL 9-23 mg by ity of 14:04: mouth [place] [address] every 8 Medical (eight) Branch hours as needed for Other (anxiety). Indication s: anxiety metoprolol 2020-0 Yes 25mg Take 25 mg U nivers succinate 9-23 by mouth ity of XL 25 mg 24 14:04: daily. [place] tablet 55 Medical Branch FENOFIBRATE 2020-0 Yes 135mg Take 135 U nivers MICRONIZED 9-23 mg by ity of ORAL 14:04: mouth [place] 55 daily. Medical Indication Branch s: hyperlipid emia atorvastati 2020-0 Yes 10mg Take 10 mg Univers n 10 mg 9-23 by mouth ity of tablet 14:04: at [place] [address] bedtime. Medical Indication Branch s: hyperlipid emia lisinopriL 2020-0 Yes 20mg Take 20 mg U nivers 20 mg 9-23 by mouth ity of tablet 14:04: daily. [place] 55 Indication Medical s: Branch hypertensi on ASA/calcium 2020-0 Yes 81mg Take 81 mg Univers carb/mag/al 9-23 by mouth ity of uminum 14:04: daily. [place] (ASPIRIN, 55 Medical BUFFERED Branch ORAL) traZODone 2020-0 Yes 100mg Take 100 Uni vers 100 mg 9-23 mg by ity of tablet 14:04: mouth at [place] 55 bedtime as Medical needed. Branch Indication s: insomnia LORAZEPAM 2020-0 Yes .25mg Take 0.25 Un юлия ORAL 9-23 mg by ity of 14:04: mouth [place] 55 every 8 Medical (eight) Branch hours as needed for Other (anxiety). Indication s: anxiety Levothyroxi 2020-0 Yes 1{capsu Take 1 U nivers ne 88 mcg 9- le} capsule by ity of capsule 14:04: mouth [place] 55 daily. Medical Indication Branch s: hypothyroi dism hydroCHLORO 2020-0 Yes 12.5mg Take 12.5 Univers thiazide 9-23 mg by ity of 12.5 mg 14:04: mouth [place] capsule 55 daily. Medical Indication Branch s: hypertensi on PARoxetine 2020-0 Yes 40mg Take 40 mg U nivers mesylate 40 - by mouth ity of mg tablet 14:04: every [place] [address] morning. Medical Indication Branch s: depression /anxiety fluticasone 2020-0 Yes 2{act} Inhale 2 Univers furoate 50 9-23 Act 2 ity of mcg/actuati 14:04: (two) [place] on DsDv 55 times Medical daily. Branch Indication s: seasonal allergies levocetiriz 2020-0 Yes 5mg Take 5 mg U nivers ine (XYZAL) - by mouth ity of 5 mg tablet 14:04: every [place] 55 evening. Medical Branch metoprolol 2020-0 Yes 25mg Take 25 mg U nivers succinate 9-23 by mouth ity of XL 25 mg 24 14:04: daily. [place] tablet 55 Medical Branch FENOFIBRATE 2020-0 Yes 135mg Take 135 U nivers MICRONIZED 9-23 mg by ity of ORAL 14:04: mouth [place] 55 daily. Medical Indication Branch s: hyperlipid emia atorvastati 2020-0 Yes 10mg Take 10 mg Univers n 10 mg 9-23 by mouth ity of tablet 14:04: at [place] [address] bedtime. Medical Indication Branch s: hyperlipid emia lisinopriL 2020-0 Yes 20mg Take 20 mg U nivers 20 mg 9-23 by mouth ity of tablet 14:04: daily. [place] 55 Indication Medical s: Branch hypertensi on ASA/calcium 2020-0 Yes 81mg Take 81 mg Univers carb/mag/al 9-23 by mouth ity of uminum 14:04: daily. [place] (ASPIRIN, 55 Medical BUFFERED Branch ORAL) traZODone 2020-0 Yes 100mg Take 100 Uni vers 100 mg 9-23 mg by ity of tablet 14:04: mouth at [place] [address] bedtime as Medical needed. Branch Indication s: insomnia LORAZEPAM 2020-0 Yes .25mg Take 0.25 Un юлия ORAL 9-23 mg by ity of 14:04: mouth [place] [address] every 8 Medical (eight) Branch hours as needed for Other (anxiety). Indication s: anxiety Levothyroxi 2020-0 Yes 1{capsu Take 1 U nivers ne 88 mcg 9-23 le} capsule by ity of capsule 14:04: mouth [place] 55 daily. Medical Indication Branch s: hypothyroi dism hydroCHLORO 2020-0 Yes 12.5mg Take 12.5 Univers thiazide 9-23 mg by ity of 12.5 mg 14:04: mouth [place] capsule 55 daily. Medical Indication Branch s: hypertensi on PARoxetine 2020-0 Yes 40mg Take 40 mg U nivers mesylate 40 9-23 by mouth ity of mg tablet 14:04: every [place] [address] morning. Medical Indication Branch s: depression /anxiety fluticasone 2020-0 Yes 2{act} Inhale 2 Univers furoate 50 9- Act 2 ity of mcg/actuati 14:04: (two) [place] on DsDv 55 times Medical daily. Branch Indication s: seasonal allergies levocetiriz 2020-0 Yes 5mg Take 5 mg U nivers ine (XYZAL) 9- by mouth ity of 5 mg tablet 14:04: every [place] [address] evening. Medical Branch metoprolol 2020-0 Yes 25mg Take 25 mg U nivers succinate 9-23 by mouth ity of XL 25 mg 24 14:04: daily. [place] tablet 55 Medical Branch FENOFIBRATE 2020-0 Yes 135mg Take 135 U nivers MICRONIZED 9-23 mg by ity of ORAL 14:04: mouth [place] 55 daily. Medical Indication Branch s: hyperlipid emia atorvastati 2020-0 Yes 10mg Take 10 mg Univers n 10 mg 9-23 by mouth ity of tablet 14:04: at [place] [address] bedtime. Medical Indication Branch s: hyperlipid emia lisinopriL 2020-0 Yes 20mg Take 20 mg U nivers 20 mg 9-23 by mouth ity of tablet 14:04: daily. [place] [address] Indication Medical s: Branch hypertensi on ASA/calcium 2020-0 Yes 81mg Take 81 mg Univers carb/mag/al 9-23 by mouth ity of uminum 14:04: daily. [place] (ASPIRIN, 55 Medical BUFFERED Branch ORAL) traZODone 2019-0 Yes 100mg Take 100 Uni vers 100 mg 9-23 mg by ity of tablet 14:04: mouth at [place] [address] bedtime as Medical needed. Branch Indication s: insomnia LORAZEPAM 2019-0 Yes .25mg Take 0.25 Un юлия ORAL 9-23 mg by ity of 14:04: mouth [place] [address] every 8 Medical (eight) Branch hours as needed for Other (anxiety). Indication s: anxiety Levothyroxi 2020-0 Yes 1{capsu Take 1 U nivers ne 88 mcg 9-23 le} capsule by ity of capsule 14:04: mouth [place] 55 daily. Medical Indication Branch s: hypothyroi dism hydroCHLORO 2019-0 Yes 12.5mg Take 12.5 Univers thiazide 9-23 mg by ity of 12.5 mg 14:04: mouth [place] capsule 55 daily. Medical Indication Branch s: hypertensi on PARoxetine 2020-0 Yes 40mg Take 40 mg U nivers mesylate 40 9-23 by mouth ity of mg tablet 14:04: every [place] [address] morning. Medical Indication Branch s: depression /anxiety fluticasone 2020-0 Yes 2{act} Inhale 2 Univers furoate 50 9-23 Act 2 ity of mcg/actuati 14:04: (two) [place] on DsDv 55 times Medical daily. Branch Indication s: seasonal allergies Levothyroxi 2020-0 Yes 1{capsu Take 1 U nivers ne 88 mcg 12-29 le} capsule by ity of capsule 14:04: mouth [place] 55 daily. Medical Indication Branch s: hypothyroi dism levocetiriz 2020-0 Yes 5mg Take 5 mg U nivers ine (XYZAL) 12-29 by mouth ity of 5 mg tablet 14:04: every [place] 55 evening. Medical Branch metoprolol 2019-0 Yes 25mg Take 25 mg U nivers succinate 12-29 by mouth ity of XL 25 mg 24 14:04: daily. [place] tablet 55 Medical Branch FENOFIBRATE 2019-0 Yes 135mg Take 135 U nivers MICRONIZED 9-23 mg by ity of ORAL 14:04: mouth [place] 55 daily. Medical Indication Branch s: hyperlipid emia atorvastati 2019-0 Yes 10mg Take 10 mg Univers n 10 mg 23 by mouth ity of tablet 14:04: at [place] [address] bedtime. Medical Indication Branch s: hyperlipid emia lisinopriL 2020-0 Yes 20mg Take 20 mg U nivers 20 mg -23 by mouth ity of tablet 14:04: daily. [place] [address] Indication Medical s: Branch hypertensi on ASA/calcium 2020-0 Yes 81mg Take 81 mg Univers carb/mag/al 23 by mouth ity of uminum 14:04: daily. [place] (ASPIRIN, 55 Medical BUFFERED Branch ORAL) traZODone 2019-0 Yes 100mg Take 100 Uni vers 100 mg 9-23 mg by ity of tablet 14:04: mouth at [place] [address] bedtime as Medical needed. Branch Indication s: insomnia LORAZEPAM 2020-0 Yes .25mg Take 0.25 Un юлия ORAL 9-23 mg by ity of 14:04: mouth [place] [address] every 8 Medical (eight) Branch hours as needed for Other (anxiety). Indication s: anxiety hydroCHLORO 2020-0 Yes 12.5mg Take 12.5 Univers thiazide 9-23 mg by ity of 12.5 mg 14:04: mouth [place] capsule 55 daily. Medical Indication Branch s: hypertensi on PARoxetine 2019-0 Yes 40mg Take 40 mg U nivers mesylate 40 9-23 by mouth ity of mg tablet 14:04: every [place] 55 morning. Medical Indication Branch s: depression /anxiety Levothyroxi 2020-0 Yes 1{capsu Take 1 U nivers ne 88 mcg 9-23 le} capsule by ity of capsule 14:04: mouth [place] 55 daily. Medical Indication Branch s: hypothyroi dism hydroCHLORO 2020-0 Yes 12.5mg Take 12.5 Univers thiazide 9-23 mg by ity of 12.5 mg 14:04: mouth [place] capsule 55 daily. Medical Indication Branch s: hypertensi on PARoxetine 2020-0 Yes 40mg Take 40 mg U nivers mesylate 40 9-23 by mouth ity of mg tablet 14:04: every [place] 55 morning. Medical Indication Branch s: depression /anxiety fluticasone 2020-0 Yes 2{act} Inhale 2 Univers furoate 50 9-23 Act 2 ity of mcg/actuati 14:04: (two) [place] on DsDv 55 times Medical daily. Branch Indication s: seasonal allergies levocetiriz 2020-0 Yes 5mg Take 5 mg U nivers ine (XYZAL) 9-23 by mouth ity of 5 mg tablet 14:04: every [place] 55 evening. Medical Branch metoprolol 2019-0 Yes 25mg Take 25 mg U nivers succinate 9-23 by mouth ity of XL 25 mg 24 14:04: daily. [place] hr tablet 55 Medical Branch fluticasone 2019-0 Yes 2{act} Inhale 2 Univers furoate 50 9-23 Act 2 ity of mcg/actuati 14:04: (two) [place] on DsDv 55 times Medical daily. Branch Indication s: seasonal allergies FENOFIBRATE 2020-0 Yes 135mg Take 135 U nivers MICRONIZED 9-23 mg by ity of ORAL 14:04: mouth [place] 55 daily. Medical Indication Branch s: hyperlipid emia atorvastati 2020-0 Yes 10mg Take 10 mg Univers n 10 mg 9-23 by mouth ity of tablet 14:04: at [place] 55 bedtime. Medical Indication Branch s: hyperlipid emia lisinopriL 2020-0 Yes 20mg Take 20 mg U nivers 20 mg 9-23 by mouth ity of tablet 14:04: daily. [place] 55 Indication Medical s: Branch hypertensi on ASA/calcium 2020-0 Yes 81mg Take 81 mg Univers carb/mag/al 9-23 by mouth ity of uminum 14:04: daily. [place] (ASPIRIN, 55 Medical BUFFERED Branch ORAL) traZODone 2020-0 Yes 100mg Take 100 Uni vers 100 mg 9-23 mg by ity of tablet 14:04: mouth at [place] 55 bedtime as Medical needed. Branch Indication s: insomnia LORAZEPAM 2019-0 Yes .25mg Take 0.25 Un юлия ORAL 9-23 mg by ity of 14:04: mouth [place] 55 every 8 Medical (eight) Branch hours as needed for Other (anxiety). Indication s: anxiety Levothyroxi 2019-0 Yes 1{capsu Take 1 U nivers ne 88 mcg 9- le} capsule by ity of capsule 14:04: mouth [place] 55 daily. Medical Indication Branch s: hypothyroi dism hydroCHLORO 2019-0 Yes 12.5mg Take 12.5 Univers thiazide 9-23 mg by ity of 12.5 mg 14:04: mouth [place] capsule 55 daily. Medical Indication Branch s: hypertensi on PARoxetine 2019-0 Yes 40mg Take 40 mg U nivers mesylate 40 - by mouth ity of mg tablet 14:04: every [place] [address] morning. Medical Indication Branch s: depression /anxiety fluticasone 2019-0 Yes 2{act} Inhale 2 Univers furoate 50 9- Act 2 ity of mcg/actuati 14:04: (two) [place] on DsDv 55 times Medical daily. Branch Indication s: seasonal allergies levocetiriz 2019-0 Yes 5mg Take 5 mg U nivers ine (XYZAL) 9- by mouth ity of 5 mg tablet 14:04: every [place] 55 evening. Medical Branch levocetiriz 2019-0 Yes 5mg Take 5 mg U nivers ine (XYZAL) 9-23 by mouth ity of 5 mg tablet 14:04: every [place] 55 evening. Medical Branch metoprolol 2019-0 Yes 25mg Take 25 mg U nivers succinate 9-23 by mouth ity of XL 25 mg 24 14:04: daily. [place] tablet 55 Medical Branch FENOFIBRATE 2019-0 Yes 135mg Take 135 U nivers MICRONIZED 9-23 mg by ity of ORAL 14:04: mouth [place] 55 daily. Medical Indication Branch s: hyperlipid emia atorvastati 2020-0 Yes 10mg Take 10 mg Univers n 10 mg -23 by mouth ity of tablet 14:04: at [place] [address] bedtime. Medical Indication Branch s: hyperlipid emia lactated 2020-0 Yes 1000mL at 75 Univer s ringers IV 9-23 mL/hr, ity of infusion 13:30: 1,000 mL, [place] 1,000 [place] 00 IV Medical Infusion, Branch CONTINUOUS , Starting Sat12/30/19 at 0830, Until Discontinu ed, Routine, PACU ondansetron 2020-0 Yes 4mg 4 mg, Slow Univers (ZOFRAN 12-29 IV Push, ity of (PF)) 13:26: PRN, 1 [place] injection 4 48 dose, Medical mg Starting Branch Sat12/30/19 at 0826, Until Discontinu ed, Routine, Nausea and Vomiting (N/V), PACU water for 2020-0 Yes PRN, Univers irrigation 12-29 Starting ity o f irrigation 13:09: Sat [place] solution 00 12/30/19 at Medic al 0809, Branch Until Discontinu ed, Routine, Intra-op simethicone 2020-0 Yes PRN, Univer s (GAS RELIEF 12-29 Starting ity of (SIMETHICON 13:08: Wed [place] E)) 40 00 12/30/19 at Medical mg/0.6 mL 0808, Branch drops Until Discontinu ed, Routine, Intra-op atorvastati 2020-0 Yes 10mg Take 10 mg Univers n 10 mg -21 by mouth ity of tablet 16:21: at [place] [address] bedtime. Medical Indication Branch s: hyperlipid emia lisinopriL 2020-0 Yes 20mg Take 20 mg U nivers 20 mg 9-21 by mouth ity of tablet 16:21: daily. [place] [address] Indication Medical s: Branch hypertensi on ASA/calcium 2020-0 Yes 81mg Take 81 mg Univers carb/mag/al 9-21 by mouth ity of uminum 16:21: daily. [place] (ASPIRIN, 38 Medical BUFFERED Branch ORAL) traZODone 2020-0 Yes 100mg Take 100 Uni vers 100 mg 9-21 mg by ity of tablet 16:21: mouth at [place] [address] bedtime as Medical needed. Branch Indication s: insomnia LORAZEPAM 2020-0 Yes .25mg Take 0.25 Un юлия ORAL 9-21 mg by ity of 16:21: mouth [place] [address] every 8 Medical (eight) Branch hours as needed for Other (anxiety). Indication s: anxiety atorvastati 2020-0 Yes 10mg Take 10 mg Univers n 10 mg 9-21 by mouth ity of tablet 16:21: at [place] [address] bedtime. Medical Indication Branch s: hyperlipid emia lisinopriL 2020-0 Yes 20mg Take 20 mg U nivers 20 mg 9-21 by mouth ity of tablet 16:21: daily. [place] 38 Indication Medical s: Branch hypertensi on ASA/calcium 2020-0 Yes 81mg Take 81 mg Univers carb/mag/al 9-21 by mouth ity of uminum 16:21: daily. [place] (ASPIRIN, 38 Medical BUFFERED Branch ORAL) traZODone 2020-0 Yes 100mg Take 100 Uni vers 100 mg 9-21 mg by ity of tablet 16:21: mouth at [place] [address] bedtime as Medical needed. Branch Indication s: insomnia LORAZEPAM 2020-0 Yes .25mg Take 0.25 Un юлия ORAL 9-21 mg by ity of 16:21: mouth [place] [address] every 8 Medical (eight) Branch hours as needed for Other (anxiety). Indication s: anxiety PARoxetine 2020-0 Yes 40mg Take 40 mg U nivers mesylate 40 9-21 by mouth ity of mg tablet 16:21: every [place] 37 morning. Medical Indication Branch s: depression /anxiety fluticasone 2020-0 Yes 2{act} Inhale 2 Univers furoate 50 9-21 Act 2 ity of mcg/actuati 16:21: (two) [place] on DsDv 37 times Medical daily. Branch Indication s: seasonal allergies levocetiriz 2020-0 Yes 5mg Take 5 mg U nivers ine (XYZAL) 9-21 by mouth ity of 5 mg tablet 16:21: every [place] 37 evening. Medical Branch metoprolol 2020-0 Yes 25mg Take 25 mg U nivers succinate 9-21 by mouth ity of XL 25 mg 24 16:21: daily. [place] hr tablet 37 Medical Branch FENOFIBRATE 2020-0 Yes 135mg Take 135 U nivers MICRONIZED 9-21 mg by ity of ORAL 16:21: mouth [place] 37 daily. Medical Indication Branch s: hyperlipid emia PARoxetine 2020-0 Yes 40mg Take 40 mg U nivers mesylate 40 12-27 by mouth ity of mg tablet 16:21: every [place] 37 morning. Medical Indication Branch s: depression /anxiety fluticasone 2020-0 Yes 2{act} Inhale 2 Univers furoate 50 12-27 Act 2 ity of mcg/actuati 16:21: (two) [place] on DsDv 37 times Medical daily. Branch Indication s: seasonal allergies levocetiriz 2020-0 Yes 5mg Take 5 mg U nivers ine (XYZAL) 12-27 by mouth ity of 5 mg tablet 16:21: every [place] 37 evening. Medical Branch metoprolol 2020-0 Yes 25mg Take 25 mg U nivers succinate - by mouth ity of XL 25 mg 24 16:21: daily. [place] hr tablet 37 Medical Branch FENOFIBRATE 2020-0 Yes 135mg Take 135 U nivers MICRONIZED 9-21 mg by ity of ORAL 16:21: mouth [place] 37 daily. Medical Indication Branch s: hyperlipid emia Levothyroxi 2020-0 Yes 1{capsu Take 1 U nivers ne 88 mcg 9-21 le} capsule by ity of capsule 16:21: mouth [place] 36 daily. Medical Indication Branch s: hypothyroi dism hydroCHLORO 2020-0 Yes 12.5mg Take 12.5 Univers thiazide 9-21 mg by ity of 12.5 mg 16:21: mouth [place] capsule 36 daily. Medical Indication Branch s: hypertensi on Levothyroxi 2020-0 Yes 1{capsu Take 1 U nivers ne 88 mcg 9-21 le} capsule by ity of capsule 16:21: mouth [place] 36 daily. Medical Indication Branch s: hypothyroi dism hydroCHLORO 2020-0 Yes 12.5mg Take 12.5 Univers thiazide 9-21 mg by ity of 12.5 mg 16:21: mouth [place] capsule 36 daily. Medical Indication Branch s: hypertensi on Paroxetine Paroxetine Yes Bhanu not C [facility] Fenofibric Fenofibric Yes Bhanu not [facility] Acid Acid Zavala defined [facility] Trazodone Trazodone Yes Bhanu not [facility] HCl HCl [facility] defined [facility] Levothyroxi Levothyroxi Yes Bhanu not [facility] ne Sodium ne Sodium Zavala defined [facility] Vital Signs Vital Name Observation Time Observation Value Comments Source Systolic blood 2019-12-30 13:50:00 135 mm[Hg] Univer sity of pressure [facility] Diastolic blood 2019-12-30 13:50:00 61 mm[Hg] Unive rsity of pressure [facility] Heart rate 2019-12-30 13:50:00 52 /min [facility] Respiratory rate 2019-12-30 13:50:00 15 /min [facility] Body temperature 2019-12-30 13:45:00 37 Luana [facility] Oxygen saturation in 2019-12-30 13:44:00 97 /min [facility] blood by [facility] Pulse oximetry Branch Body height 2019-12-24 17:24:00 160.1 cm [facility] Body weight 2019-12-24 17:24:00 66.225 kg [facility] BMI 2019-12-24 17:24:00 25.84 kg/m2 [facility] Systolic blood 2019-12-30 13:50:00 135 mm[Hg] Univer sity of pressure [facility] Diastolic blood 2019-12-30 13:50:00 61 mm[Hg] Unive rsity of pressure [facility] Heart rate 2019-12-30 13:50:00 52 /min [facility] Respiratory rate 2019-12-30 13:50:00 15 /min [facility] 2019-12-30 13:45:00 37 Luana [facility] Oxygen saturation in 2019-12-30 13:44:00 97 /min [facility] Arterial blood by [facility] Pulse oximetry Branch Body height 2019-12-24 17:24:00 160.1 cm [facility] Body weight 2019-12-24 17:24:00 66.225 kg [facility] BMI 2019-12-24 17:24:00 25.84 kg/m2 [facility] Procedures Procedure Date / Time Performing Clinician Source Performed COLONOSCOPY (ENDO) 2019-12-30 12:24:07 Anat Sam [facility] ASSIGNMENT OF BENEFITS 2019-12-29 13:58:26 Doctor Unassigned, No [facility] DSU PRE-OP 2019-12-16 05:01:00 Doctor Unassigned, No [facility] Encounters Start End Encounter Admission Attending Care Care Encounter Source Date/Time Date/Time Type Type Clinicians Facility Department ID 2021-02-03 Outpatient R NICK [facility] [id number] Univers 18:45:00 EARMIDAZALuis Fernando [facility] 2020-12-07 2020-12-07 Laboratory Only, Ang Db Test [facility] 1.2.8 40.114 [id number] Univers 09:00:19 09:10:19 Only Laureen Pierce [id number] [id number] Omid as Sudhir?Blea [id number] [address] Medical Office Building 2020-12-07 2020-12-07 Outpatient R [facility] [id number] Univers 09:00:00 09:00:00 [id number] [facility] 2020-12-07 2020-12-07 Outpatient R LEN [facility] [id number] Univers 09:00:00 09:00:00 LAUREEN [facility] 2020-12-07 2020-12-07 Letter Doctor NORIEGA 1.2.840.114 [id number] Univers 00:00:00 00:00:00 (Out) UnassPIETRO gonsalez [id number] ity [facility] [id number] Omid as [id number] [address] 2020-12-07 2020-12-07 Letter Doctor HARI [id number] Univers 00:00:00 00:00:00 (Out) Unassigned, PIETRO [id number] ity of [place] [facility] [id number] Omid as [id number] [address] 2019-12-30 2019-12-30 [facility] [id number] 06:40:00 09:04:00 Encounter Pretty kumar [id number] [place] [id number] Surgical [id number] [place] [address] 2019-12-30 2019-12-30 [facility] [id number] Univers 06:40:00 09:04:00 Encounter Pretty kumar [id number] [place] [id number] [place] [id number] [address] 2019-12-29 2019-12-29 Outpatient R [facility] [id number] Univers 13:45:00 13:45:00 PRETTY Kumar o f [facility] 2019-12-29 2019-12-29 Laboratory Only, [facility] 1.2.840.114 [id number] 08:59:05 09:14:05 Only Test Ivania [id number] [place] [id number] [place] [id number] [facility] 2019-12-29 2019-12-29 Laboratory Only, [facility] Test [facility] 1.2.840. 114 [id number] Univers 08:59:05 09:14:05 Only Pretty Gandhi 350.1.1 3.10 [place]y [place] [id number] [place] [id number] [address] 2019-12-29 2019-12-29 Orders Doctor HARI 1.2.840.114 [id number] 00:00:00 00:00:00 Only Unassigned, PIETRO [id number] [facility] [id number] 2019-12-29 2019-12-29 Orders Doctor HARI [id number] 00:00:00 00:00:00 Only Unassigned, PIETRO [id number] ity of [facility] [id number] Omid as [id number] [place] [id number] [place] 2018-12-23 2018-12-23 [id number] [facility] 09:30:00 09:30:00 [facility] Clinics Results This patient has no known results.
== END 2021-02-05 10:54 | disposition home or self-care (01) ==
LOC: ER 15:22 → ERHOLD 17:04 → 2ND 19:48
PROVIDERS: ADMIT Family Medicine; ATTEND Family Medicine
DX: R07.9 Chest pain, unspecified (principal); I10 Essential (primary) hypertension; E78.2 Mixed hyperlipidemia; E03.9 Hypothyroidism, unspecified; G47.00 Insomnia, unspecified; F41.8 Other specified anxiety disorders; F12.90 Cannabis use, unspecified, uncomplicated; Z71.51 Drug abuse counseling and surveillance of drug abuser; J30.2 Other seasonal allergic rhinitis; E53.8 Deficiency of other specified B group vitamins; Z88.6 Allergy status to analgesic agent; Z88.8 Allergy status to other drugs, medicaments and biological substances; Z90.710 Acquired absence of both cervix and uterus; Z20.822 Contact with and (suspected) exposure to COVID-19
CPT/HCPCS: 93005; 85025 ×2; 80048 ×2; 36415; 83735 ×2; 82550 ×2; 85610; 80061; 80076; 84443; 84484 ×2; 82553 ×2; 84439; 83880; 80307; 70450; 70496; 71045; 99285; U0003; Q9967; J1650; J7030; G0378 ×3

== ENCOUNTER → 2023-06-26 | Emergency (ER) | payer OTHER ==
[~2023-06-26] MED LIST: ACETAMINOPHEN 500 MG TAB ONE; DIAZEPAM 5 MG TABLET ONE; LIDOCAINE 4% PATCH ONE; ONDANSETRON 4 MG (ODT) TAB ONE; predniSONE 20 MG TAB ONE
--- NOTE | 2023-06-26 11:10 | RAD REPORT ---
EXAM DESCRIPTION: CT - Spine Lumbar Wo Con - 06/26/2023 10:30 am CLINICAL HISTORY: PAIN COMPARISON: No comparisonsNo comparisons TECHNIQUE: Axial noncontrast CT imaging of the lumbar spine was performed with coronal and sagittal re-formatted images. All CT scans are performed using dose optimization technique as appropriate and may include automated exposure control or mA/KV adjustment according to patient size. FINDINGS: No acute lumbar spine fracture seen. No aggressive marrow pattern or malalignment. Paraspinal tissues are normal in thickness. No paraspinal abscess or hematoma seen. Intervertebral disc disease assessment is inherently limited by CT. Within these limitations, no high -grade canal stenosis suspected. Sequelae of left hemilaminectomy seen at L4-5. Moderate disc height loss with endplate remodeling and Schmorl's node formation at this level with a circumferential disc bulge. Moderate left and mild right neural foraminal narrowing. Circumferential disc bulges at L3-4 and to lesser extent at L2-3, without high-grade foraminal stenosis. IMPRESSION: No acute lumbar spine fracture or subluxation. Degenerative changes as above most pronounced at L4-5 with sequelae of left hemilaminectomy at this l evel. Moderate left and mild right neural foraminal narrowing at this level. Please consider MRI follow-up for assessment of disc disease and neural impingement if clinically ind icated.
--- NOTE | 2023-06-26 11:48 | EDPHYS ---
Physician Documentation [facility] Name: Debbie Emanuel Age: 62 yrs Sex: Female : 1960 Arrival Date: 06/26/2023 Time: 09:39 Bed 11 Private MD: ED Physician Chi Christiansen HPI: 06/25 11:13 This 62 yrs old Female presents to ER via Ambulatory with complaints of Hip ec2 Pain. 11:13 Patient arrives today for left hip pain. Patient with history of sciatica, complaining ec2 of hip pain going down into the left lower extremity. No falls or injuries or trauma, no red flag symptoms.. Historical: - Allergies: 09:44 Codeine; ll1 09:48 Hydrocodone-Acetaminophen; ll1 09:48 "antibiotic"; ll1 - PMHx: 09:44 Anxiety; Hypertension; Thyroid problem; Hyperlipidemia; vitamin b-12 deficiency; ll1 - Immunization history:: Adult Immunizations up to date. - Social history:: Smoking status: Patient denies any tobacco usage or history of. ROS: 11:13 Constitutional: as per hpi ec2 Exam: 11:13 Constitutional: GEN: NAD Head: atraumatic Eyes: EOMI Ears: External ears are ec2 normal. CV: regular rate LUNGS: no respiratory distress ABD: non-distended SKIN: no evidence of rashes MSK: No evidence of trauma, mild left buttock TTP, no deformities or crepitus, no C/T/L-spine TTP, positive straight leg raise test on the left lower extremity. Intact distal neurovascular status, sensation intact throughout. No lower extremity swelling NEURO: moves all extremities equally Vital Signs: 09:49 BP 144 / 91; Pulse 72; Resp 18; Temp 98.4; Pulse Ox 100% ; Weight 63.96 kg; Height 5 ll1 ft. 6 in. ; Pain 10/10; 09:49 Body Mass Index 22.76 (63.96 kg, 167.64 cm) ll1 09:49 Pain Scale: Adult ll1 MDM: 10:15 Patient medically screened. ec2 11:13 Data reviewed: vital signs. ED course: CT of the L-spine shows no acute traumatic ec2 pathology, degenerative joint disease noted, will discharge home, no focal neurologic deficits. Instructed her on [id number] medications and continued exercise. Return precautions given. . 11:47 ED course: On reassessment patient sleeping comfortably with no acute distress. Will ec2 discharge home with prescription for Robaxin and steroid. Return precautions given.. 06/25 10:15 Order name: CT Lumbar Spine Wo Con; Complete Time: 11:13 ec2 Administered Medications: 10:25 Drug: Lidoderm Topical Patch 5 % (700 mg/patch) 1 patches Topical once; leave on for 12 ll1 hours; cover most painful area; may cut into smaller pieces Route: Topical; Site: affected area; 11:42 Follow up: Response: No adverse reaction; Pain is decreased ll1 10:39 Drug: Diazepam PO 10 mg PO once Route: PO; ll1 11:42 Follow up: Response: No adverse reaction; Pain is decreased; RASS: Alert and Calm (0) ll1 10:39 Drug: Acetaminophen PO 1000 mg PO once Route: PO; ll1 11:42 Follow up: Response: No adverse reaction ll1 10:39 Drug: predniSONE PO 40 mg PO once Route: PO; ll1 11:42 Follow up: Response: No adverse reaction ll1 10:39 Drug: Ondansetron PO 4 mg PO once Route: PO; ll1 11:41 Follow up: Response: No adverse reaction ll1 Disposition Summary: 06/26/23 11:47 Discharge Ordered Notes: Location: Home ec2 Problem: new ec2 Symptoms: have improved ec2 Condition: Stable ec2 Diagnosis - Sciatica, left side ec2 Followup: ec2 - With: Private Physician - When: - Reason: Re-evaluation by your physician Discharge Instructions: - Discharge Summary Sheet ec2 - Sciatica ec2 Forms: - Medication Reconciliation Form ec2 - Thank You Letter ec2 - Antibiotic Education ec2 - Prescription Opioid Use ec2 - Patient Portal Instructions ec2 - Leadership Thank You Letter ec2 Prescriptions: - Prednisone 20 mg Oral Tablet - take 2 tablets ORAL route once daily for 5 days; 10 tablet; Refills: 0, Product ec2 Selection Permitted - methocarbamol 500 mg Oral tablet - take 2 tablets ORAL route 4 times per day; 20 tablet; Refills: 0, Product ec2 Selection Permitted Signatures: Dispatcher [employer] Ervin Petersen RN RN 1 Chi Christiansen MD MD ec2 Corrections: (The following items were deleted from the chart) 09:49 09:44 Allergies: Vicodin; ll1 ll1
--- NOTE | 2023-06-26 11:48 | ER ---
Nurse's Notes [facility] Name: Debbie Emanuel Age: 62 yrs Sex: Female : 1960 Arrival Date: 06/26/2023 Time: 09:39 Bed 11 Private MD: Diagnosis: Sciatica, left side Presentation: 06/25 09:49 Chief complaint: Patient states: Severe L hip pain that radiates down entire L leg for ll1 3 days getting worse. No trauma or falls, but packing to move. Coronavirus screen: Client denies travel out of the [place] in the last 14 days. At this time, the client does not indicate any symptoms associated with coronavirus-19. Ebola Screen: Patient denies travel to an Ebola-affected area in the 21 days before illness onset. Initial Sepsis Screen: Does the patient meet any 2 criteria? No. Patient's initial sepsis screen is negative. Does the patient have a suspected source of infection? No. Patient's initial sepsis screen is negative. Risk Assessment: Do you want to hurt yourself or someone else? Patient reports no desire to harm self or others. Onset of symptoms was June 24, 2023. 09:49 Method Of Arrival: Ambulatory ll1 09:49 Acuity: NU 3 ll1 Triage Assessment: 09:52 General: Appears uncomfortable, Behavior is calm, cooperative, appropriate for age. ll1 Pain: Complains of pain in left leg Pain currently is 10 out of 10 on a pain scale. Quality of pain is described as aching. Musculoskeletal: Circulation, motion, and sensation intact. Capillary refill < 3 seconds, Reports pain in left leg. Historical: - Allergies: 09:44 Codeine; ll1 09:48 Hydrocodone-Acetaminophen; ll1 09:48 "antibiotic"; ll1 - PMHx: 09:44 Anxiety; Hypertension; Thyroid problem; Hyperlipidemia; vitamin b-12 deficiency; ll1 - Immunization history:: Adult Immunizations up to date. - Social history:: Smoking status: Patient denies any tobacco usage or history of. Screenin:32 [facility] ED Fall Risk Assessment (Adult) History of falling in the last 3 months, ll1 including since admission No falls in past 3 months (0 pts) Confusion or Disorientation No (0 pts) Intoxicated or Sedated No (0 pts) Impaired Gait Yes (1 pt) Mobility Assist Device Used Yes (1 pt) Altered Elimination No (0 pt) Score/Fall Risk Level 0 - 2 = Low Risk Maintained a safe environment, Hourly rounding (assess needs \\T\\ fall precautionary measures) done. Abuse screen: Denies threats or abuse. Nutritional screening: No deficits noted. Tuberculosis screening: No symptoms or risk factors identified. Assessment: 10:22 Reassessment: No changes from previously documented assessment. To CT via wheelchair. ll1 10:39 Reassessment: No changes from previously documented assessment. Patient and/or family ll1 updated on plan of care and expected duration. Pain level reassessed. Patient is alert, oriented x 3, equal unlabored respirations, skin warm/dry/pink. 11:40 Reassessment: No changes from previously documented assessment. Patient and/or family ll1 updated on plan of care and expected duration. Pain level reassessed. Patient is alert, oriented x 3, equal unlabored respirations, skin warm/dry/pink. Vital Signs: 09:49 BP 144 / 91; Pulse 72; Resp 18; Temp 98.4; Pulse Ox 100% ; Weight 63.96 kg; Height 5 ll1 ft. 6 in. ; Pain 10/10; 09:49 Body Mass Index 22.76 (63.96 kg, 167.64 cm) ll1 09:49 Pain Scale: Adult ll1 ED Course: 09:42 Patient arrived in ED. mg5 09:44 Arm band placed on. ll1 09:50 Triage completed. ll1 09:58 Chi Christiansen MD is Attending Physician. ec2 10:17 Ervin Rachel, LEXI is Primary Nurse. ll1 10:29 CT Lumbar Spine Wo Con In Process Unspecified. EDMS 10:32 Patient has correct armband on for positive identification. Bed in low position. Call ll1 light in reach. Provided Education on: ER procedures and process. Cardiac monitoring not applicable on this patient. Administered Medications: 10:25 Drug: Lidoderm Topical Patch 5 % (700 mg/patch) 1 patches Topical once; leave on for 12 ll1 hours; cover most painful area; may cut into smaller pieces Route: Topical; Site: affected area; 11:42 Follow up: Response: No adverse reaction; Pain is decreased ll1 10:39 Drug: Diazepam PO 10 mg PO once Route: PO; ll1 11:42 Follow up: Response: No adverse reaction; Pain is decreased; RASS: Alert and Calm (0) ll1 10:39 Drug: Acetaminophen PO 1000 mg PO once Route: PO; ll1 11:42 Follow up: Response: No adverse reaction ll1 10:39 Drug: predniSONE PO 40 mg PO once Route: PO; ll1 11:42 Follow up: Response: No adverse reaction ll1 10:39 Drug: Ondansetron PO 4 mg PO once Route: PO; ll1 11:41 Follow up: Response: No adverse reaction ll1 Medication: 10:32 VIS not applicable for this client. ll1 Outcome: 11:47 Discharge ordered by . ec2 11:59 Patient left the ED. ld1 Signatures: Dispatcher [employer] Ervin Petersen RN RN ll1 Shruthi Mahmood RN RN ld1 Marixa Snowden mg5 Chi Christiansen MD MD ec2 Corrections: (The following items were deleted from the chart) 09:49 09:44 Allergies: Vicodin; ll1 ll1
[2023-06-26 12:21] VITALS: BP 144/91; TEMP 98.4; O2SAT 100
== END ==
LOC: ER 09:39
DX: M54.32 Sciatica, left side (principal); Z88.1 Allergy status to other antibiotic agents; Z88.5 Allergy status to narcotic agent
CPT/HCPCS: 72131; J7512; Q0162; J2001